=== PATIENT | female | born 1940 | race Caucasian/White ===

== ENCOUNTER 2020-06-06 05:32 | Inpatient (IN) | payer MEDICARE, BC ==
--- NOTE | 2020-06-05 07:01 | HP ---
REASON FOR H AND P: Surgery on 06/06/2020. HISTORY OF PRESENT ILLNESS: Ms. Mcdonald is an 80-year-old female with a history of ACDF when she was 63 years old, living in [place]. She states she has neck pain and only numbness radiating to her entire bilateral arms, hands, and all her fingers. She often drops objects for many years, and states that her left hand is worse than the right hand. She has been using a cane for several years now due to her unsteady gait. She denies bladder or bowel incontinence. REVIEW OF SYSTEMS: CONSTITUTIONAL: Denies fever or chills. ENT: Denies change in vision or hearing. CARDIAC: Denies chest pain, shortness of breath, diaphoresis. PULMONARY: Denies shortness of breath, cough, or hemoptysis. GI: Denies abdominal pain, nausea, vomiting, diarrhea, change in stool formation and consistency. : Denies trouble with urination, frequency of urination, bloody urine. SKIN: Denies skin rash, bruising, bleeding, skin masses. MUSCULOSKELETAL: As per history of present illness. NEUROLOGIC: As per history of present illness. PSYCHOLOGIC: Denies anxiety, depression, behavior changes. PAST MEDICAL HISTORY: Arthritis, blood clots both lungs (PEs), chronic pain, high blood pressure, kidney/bladder problems. PAST SURGICAL HISTORY: Left hand surgery, ACDF, laminectomy in 2015. FAMILY HISTORY: Father . Mother . SOCIAL HISTORY: Nonsmoker. Denies alcohol or illicit drug use. MEDICATIONS: 1. Xarelto 20 mg. 2. Furosemide 20 mg. 3. Gabapentin 300 mg. 4. Cyclobenzaprine 10 mg. 5. Acetaminophen/codeine. 6. Doxazosin 1 mg. 7. Carvedilol 12.5 mg. ALLERGIES: PENICILLIN. VITAL SIGNS: Weight 160, height 5 feet 7 inches, and BMI 25. PHYSICAL EXAMINATION: HEENT: Pupils are equal. Extraocular movements are intact. NECK: Soft, supple. No masses are noted. Range of motion is intact and painful. NEUROLOGIC: Awake, alert, and oriented x3. Memory, attention, fund of knowledge are normal. Cranial nerves grossly intact. Upper extremities, 4/5 strength in her right biceps, left biceps 5/5 in the wrist extension, 4/5 in the left finger extension and finger intrinsics. IMAGING STUDIES: C-spine MRI, T1-T2 HTD, thoracic disk, severe central narrowing T2-T3, HTD severe central narrowing T4-T5, severe left and right foraminal narrowing, T5-T6 severe left foraminal narrowing. C-spine x-ray, stable ACDF C5 through C7, C4-C5 spondylolisthesis. ASSESSMENT: Cervical spondylosis with myopathy, cervical stenosis of this cervical spine. PLAN: 1. Posterior laminectomy and fusion, C5 through T3. Preop labs; CBC, PT, PTT, INR. 2. Clearance: PCP, cardiac, anesthesia, 3. Doppler ultrasound of the bilateral lower extremities prior to surgery. Possible IVC filter if clots are detected by Doppler ultrasound. 4. Stay off Xarelto 1 week prior to surgery and 2 weeks after surgery. INFORMED CONSENT: We have discussed the indications, risks, benefits, alternatives, and expected results from surgery. The risks discussed included, but were not limited to, bleeding, infection, CSF leak, nerve damage, weakness, swallowing trouble, feeding tube placement, tracheal injury, esophageal injury, vocal cord injury, spinal cord injury, incontinence, paralysis, ventilator dependency, wheelchair dependency, stroke, loss of vision, carotid artery injury, jugular vein injury, hardware misplacement, cardiopulmonary complications of anesthesia or . Long-term complications discussed included, but were not limited to hardware failure and degradation of surrounding disk. The patient states they understand the risks and is willing to proceed. Job ID: [id number] [facility]
[2020-06-05 08:21] VITALS: BMI 25.8
[2020-06-06] MEDS ORDERED: Clindamycin/D5W 900 mg/50 ml Premix Bag ONE ×2 (06:01→17:30)
[2020-06-06] MEDS ORDERED: Levofloxacin 500 mg/D5W 100 ml Premix Bag ONE (06:01)
[2020-06-06] MEDS ORDERED: Thrombin 5000 UNITS/5 ML VIAL ONE (06:11)
[2020-06-06] MEDS ORDERED: EPINEPHrine 1 MG/ML AMP ONE (06:11)
[2020-06-06] MEDS ORDERED: Bupivacaine PF 0.5% 30 ML VIAL ONE (06:11)
[2020-06-06] MEDS ORDERED: Bacitracin Zinc Ointment 30 gm TUBE ONE (06:36)
[2020-06-06] MEDS ORDERED: Phenylephrine 10 MG/ML VIAL ONE (06:54)
[2020-06-06] MEDS ORDERED: Ketamine 50 MG/ML (10ML VIAL) ONE (06:54)
[2020-06-06] MEDS ORDERED: Fentanyl 100 MCG/2 ML VIAL ONE ×4 (06:58→18:05)
[2020-06-06 07:20] LABS: #Basophils 0.1 thou/uL (0.0-0.2); #Eosinphils 0.3 thou/uL (0.0-0.7); #Lymphocytes 2.4 thou/uL (1.20-3.40); #Monocytes 0.8 thou/uL (0.11-0.59); #Neutrophils 3.9 thou/uL (1.40-6.50); %Basophils 0.9 % (0.0-1.0); %Eosinophils 4.4 % (0.0-10.0); %Lymphocytes 32.3 % (21.0-51.0); %Monocytes 10.2 % (0.0-10.0); %Neutrophils 52.2 % (42.0-75.0); Hemoglobin 13.4 g/dL (12.0-16.0); Mean Corpuscular HGB CONC 33.4 g/dL (32.0-36.0); Mean Corpuscular Hemoglobin 31.3 pg (27.0-31.0); Mean Corpuscular Volume 93.7 fL (78.0-98.0); Mean Platelet Volume 8.2 fL (7.4-10.4); Platelet Count 188 thou/uL (130-400); Red Blood Cell (RBC) Count 4.29 mill/uL (4.20-5.40); White Blood Cell (WBC) Count 7.6 thou/uL (4.8-10.8)
[2020-06-06 07:27] LABS: INR-International Normal Ratio 0.9; PTT 29.7 sec (22.9-36.1); Prothrombin Time 12.6 sec (12.0-14.7)
[2020-06-06 07:39] LABS: Anion Gap 16 mmol/L (10-20); BUN (Urea Nitrogen) 21 mg/dL (9.8-20.1); Calc. Creatinine Clearance 41 mL/min (70-130); Calcium 9.4 mg/dL (7.8-10.44); Carbon Dioxide 22 mmol/L (23-31); Chloride 107 mmol/L (98-107); Estimated GFR-MDRD 42; Glucose 158 mg/dL (83-110); Potassium 4.6 mmol/L (3.5-5.1); Sodium 140 mmol/L (136-145)
[2020-06-06] MEDS ORDERED: Rocuronium Bromide 10 MG/ML (10ML VIAL) ONE (10:38)
[2020-06-06] MEDS ORDERED: Ondansetron PF 4 MG/2 ML Vial ONE (10:38)
[2020-06-06] MEDS ORDERED: Glycopyrrolate 0.2 MG/ML 5 ML SYRINGE ONE (10:38)
[2020-06-06] MEDS ORDERED: ePHEDrine 50 MG/ML VIAL ONE ×2 (10:38→13:51)
[2020-06-06] MEDS ORDERED: Dexamethasone 20 MG/5 ML VIAL ONE (10:38)
[2020-06-06] MEDS ORDERED: PROPOFOL 200 MG/20 ML VIAL ONE (10:38)
[2020-06-06] MEDS ORDERED: Lidocaine 1% PF 5 ML VIAL ONE (10:38)
[2020-06-06] MEDS ORDERED: Promethazine HCl 25 MG/ML VIAL SLOW IVP PRN ×2 (11:14→16:03)
[2020-06-06] MEDS ORDERED: HYDROmorphone 2 MG/ML VIAL SLOW IVP PRN ×2 (11:14→16:03)
[2020-06-06] MEDS ORDERED: Ondansetron HCl/PF 4 MG/2 ML Vial IVP PRN ×2 (11:14→16:03)
[2020-06-06] MEDS ORDERED: SUGAMMADEX SODIUM 200 MG/2 ML VIAL ONE (11:50)
[2020-06-06] MEDS ORDERED: Rocuronium Bromide 50 MG/5 ML VIAL ONE ×2 (11:50→14:24)
[2020-06-06] MEDS ORDERED: traMADol HCl 50 MG TAB PO PRN (15:47)
[2020-06-06] MEDS ORDERED: Morphine 2 MG/ML VIAL SLOW IVP PRN (15:47)
[2020-06-06] MEDS ORDERED: Promethazine HCl 25 MG/ML VIAL IM PRN ×3 (15:47→17:42)
[2020-06-06] MEDS ORDERED: tiZANidine HCl 4 MG TAB PO PRN (15:47)
[2020-06-06] MEDS ORDERED: diphenhydrAMINE 25 MG CAP PO PRN ×2 (15:47→17:42)
[2020-06-06] MEDS ORDERED: Scopolamine 1.5 mg/72 hour Patch TD PRN (15:47)
[2020-06-06] MEDS ORDERED: Mag-Al 1200 mg/1200 mg/30 ML UDCUP PO PRN (15:47)
[2020-06-06] MEDS ORDERED: Milk Of Magnesia 30 ML UDCUP PO PRN (15:47)
[2020-06-06] MEDS ORDERED: Promethazine 25 MG TAB PO PRN (15:47)
[2020-06-06] MEDS ORDERED: Acetaminophen 325 MG TAB PO PRN (15:47)
[2020-06-06] MEDS ORDERED: HYDROmorphone 0.5 MG/0.5 ML SYRINGE ONE ×4 (16:23→17:15)
[2020-06-06] MEDS: Clindamycin/D5W 900 MG in Premix Bag 1 BAG IVPB SCH (17:30)
[2020-06-06] MEDS ORDERED: Zolpidem Tartrate 5 MG TAB PO PRN (17:42)
[2020-06-06] MEDS ORDERED: Naloxone HCl 0.4 mg/ml Vial IV PRN (17:42)
[2020-06-06] MEDS ORDERED: diphenhydrAMINE 50 MG/ML VIAL IVP PRN (17:42)
[2020-06-06] MEDS ORDERED: diphenhydrAMINE 50 MG/ML VIAL IM PRN (17:42)
[2020-06-06] MEDS ORDERED: fentaNYL Citrate/PF 2,000 MCG in Sodium Chloride 0.9% 60 ML IV PRN (17:42)
[2020-06-06] MEDS ORDERED: Ondansetron PF 4 MG/2 ML Vial IVP PRN (17:42)
[2020-06-06] MEDS ORDERED: Communication Order-Pharmacy FS SCH (17:45)
--- NOTE | 2020-06-06 19:22 | OP ---
DATE OF PROCEDURE: 06/06/2020 TRUSS PULLER HELPER: David Kc PA-C. PREOPERATIVE INDICATION: Treat pain and prevent neurological deterioration. PREOPERATIVE DIAGNOSES: Cervicothoracic spinal stenosis with myelopathy, worsening; prior cervical surgery. POSTOPERATIVE DIAGNOSES: Cervicothoracic spinal stenosis with myelopathy, worsening; prior cervical surgery. PROCEDURES PERFORMED: 1. Decompressive laminectomy with medial facetectomy and foraminotomy at C5, C6, C7, and T1, T2, T3. 2. Posterior segmental instrumentation, C5 through T3. 3. Posterolateral arthrodesis, C5-C6, C6-C7, C7-T1, T1-T2, T2-T3. 4. Local morselized autograft, morselized allograft. PREOPERATIVE MEDICATIONS: 1. Levaquin 500 mg IV. 2. Clindamycin 900 mg IV. DRAIN NUMBER: 1. DRAIN TYPE: 10-Azeri Olvin. DESCRIPTION OF PROCEDURE: The patient was brought to the operating room. General endotracheal anesthesia was induced. Ring pin and headholder were attached to the patient's head, and the patient was carefully positioned prone on the operating table with her chest and hips supported by gel-filled chest rolls. The head was immobilized with Ring arreola. The patient was strapped to the bed. A lateral fluoro radiograph was used to plan our incision. The back of the neck and upper thoracic skin were sterilely prepped and draped. We opened the midline incision with a 10 blade knife and controlled bleeding with bipolar and monopolar cautery. We used monopolar cautery to dissect through subcutaneous tissues to the ligamentum nuchae. We incised this ligament in the midline and made our way to the spinous processes from C4 through T3. Self-retaining retractors were placed and a lateral fluoro radiograph confirmed the levels upon which we were operating. We then proceeded with our decompression. Using Adson rongeur, we removed the spinous processes from C5 through T2 and the superior portion of T3. Using Kerrison rongeurs, we fashioned a careful midline laminectomy and then widened our laminectomy all the way to the pedicles. We took some overgrown facet joints and made sure nerve roots were leaving the spine without impingement. With our dura well decompressed, we turned our attention to arthrodesis. Starting with the T1, T2, and T3, we chose entry points for pedicle screws. We did this by palpating the medial portion of the pedicles and using a lateral fluoro radiograph as well as bony anatomic landmarks as our guide. With our the entry points chosen, we used a bone awl to advance through the pedicles into the vertebral bodies. We tapped our trajectory with the 3.5 mm tap and placed 4 mm diameter pedicle screws from T1 through T3 bilaterally. The C7 lateral mass and the C7 pedicle would not accept the screw head that would fall into alignment with the T1 screws and therefore we skipped that level. We drilled out the regional airline pilot holes into the lateral masses at C6 and C5 bilaterally. We drilled out our trajectory by aiming superiorly and laterally with a hand drill and we placed 14 mm lateral mass screws. We irrigated with bacitracin irrigation. We then brought rods down into the field. Due to the kyphosis of the upper thoracic spine and the extreme lordosis in the cervical spine, getting a olivia to bridge the construct required multiple iterative attempts at contouring. In the end, we contoured two rods that engaged the 10 screw heads. We tightened caps over the rods and using a torque/counter-torque mechanism, ensured adequate tightness. We irrigated once again with bacitracin irrigation. We decorticated the lateral masses and the facet joints from C5 all the way down to T3. We left demineralized bone matrix and morselized autograft in the posterolateral space for posterolateral arthrodesis at C5-C6, C6-C7, C7-T1, T1-T2, and T2-T3. We tunneled the drain inferiorly through a separate stab incision. We treated the wound with vancomycin powder and closed in anatomical layers. This was a clean case, no contamination. Job ID: [id number] [facility]
[2020-06-06] MEDS ORDERED: PATIENT'S HOME MEDICATION PO SCH (21:00)
[2020-06-06] MEDS: Sodium Chloride 0.9% 1,000 ML IV SCH (21:39)
[2020-06-06] MEDS: Carvedilol 6.25 MG TAB PO SCH (21:40)
[2020-06-06] MEDS: Gabapentin 300 MG CAP PO SCH (21:42)
[2020-06-06] MEDS: Doxazosin Mesylate 1 MG TAB PO SCH (21:42)
[2020-06-06] MEDS ORDERED: Dextrose 50% Abboject 50 ML SYRINGE SLOW IVP PRN (21:44)
[2020-06-06] MEDS ORDERED: Dextrose 5% in Water 1,000 ML IV PRN (21:44)
[2020-06-07] MEDS: Clindamycin/D5W 900 MG in Premix Bag 1 BAG IVPB SCH ×3 (00:12→16:53)
[2020-06-07] MEDS: Sodium Chloride 0.9% 1,000 ML IV SCH ×2 (04:26→16:54)
[2020-06-07] MEDS: glipiZIDE 5 MG TAB PO SCH ×2 (08:36→10:38)
[2020-06-07] MEDS ORDERED: hydrOXYzine 10 MG TAB PO SCH (09:00)
[2020-06-07] MEDS ORDERED: Furosemide 20 MG TAB PO SCH (09:00)
[2020-06-07] MEDS ORDERED: HumaLOG 300 UNITS/3 ML VIAL SC PRN (10:04)
[2020-06-07] MEDS: Gabapentin 300 MG CAP PO SCH (10:38)
--- NOTE | 2020-06-07 10:44 | PDOC.HHP ---
Hospitalist HPI - History of Present Illness Chronic neck and back pain History of Present Illness: PCP: out of town The patient is a 8-year-old female with a past medical history significant for chronic neck and back pain, hypertension, DM 2, tachycardia, obstructive sleep apnea (on CPAP at home), insomnia and anxiety that presents to the hospital for a scheduled posterior laminectomy and fusion of C5-T3 with Dr. Lepe. The patient has had chronic pain for some time in her neck and back, making it hard for her to perform her activities of daily living. For those reasons she is scheduled a surgery to have her spine repaired. We have been consulted for medical management. At the time of assessment, the patient denies any chest pain, heart palpitations, lightheadedness or swelling to lower extremities. She denies any shortness of breath, wheeze or cough. She denies abdominal pain, nausea, vomiting, diarrhea. She denies any urinary symptoms. She denies any fever or chills. ED Course: Direct admit. Hospitalist ROS - Review of Systems All other systems reviewed; all pertinent +/- noted in HPI/Subj - Medication Medications: Active Medications Generic Name Dose Route Start Last Admin Trade Name Freq PRN Reason Stop Dose Admin Carvedilol 12.5 mg 06/06/20 21:00 06/06/20 21:40 Carvedilol 6.25 Mg Tab PO 12.5 mg BID [place] Administration Doxazosin Mesylate 1 mg 06/06/20 21:00 06/06/20 21:42 Doxazosin Mesylate 1 Mg Tab PO 1 mg HS [place] Administration Sodium Chloride 1,000 mls @ 75 mls/hr 06/06/20 16:00 06/07/20 04:26 Normal Saline 0.9% IV Not Given .[id number] [place] Clindamycin Phosphate/Dextrose 50 mls @ 100 mls/hr 06/06/20 17:00 06/07/20 00:12 900 mg/ Device IVPB 50 mls 0100,0900,1700 [place] Administration Levofloxacin 500 mg/ Device 100 mls @ 100 mls/hr 06/07/20 06:00 06/07/20 06:30 IVPB 100 mls Q24HR [place] Administration Hospitalist History - Past Medical History Cardiac: reports: HTN, Other (Tachycardia) Pulmonary: reports: Other ( obstructive sleep apnea on CPAP at home) Psych: reports: Anxiety, Other (Insomnia) Endocrine: reports: Diabetes (Type II) - Past Surgical History Past Surgical History: reports: Cataract Removal, Hysterectomy, Other (Neck surgery x2, back surgery x2, hand surgery) - Family History Other Family History: Noncontributory to this case - Social History Smoking Status: Never smoker Alcohol: reports: None Living Situation: With Family Occupation: Does not work Activity level: uses cane/walker - Exam General Appearance: NAD. negative: ill appearing General - other findings: Somnolent with fentanyl STRATEGIC INSIGHTS LEAD infusing Eye: PERRL, anicteric sclera ENT: normocephalic atraumatic Neck: supple, symmetric, no JVD Heart: no murmur, no gallops, no rubs, normal peripheral pulses Heart - other findings: Tachycardia Respiratory: CTAB, no wheezes, no rales, no ronchi, normal chest expansion, no tachypnea Gastrointestinal: soft, non-tender, non-distended, normal bowel sounds, no guarding, no rigidity Extremities: no cyanosis, no edema Skin: no rashes Neurological - other findings: GCS 14: E 3, V5, M6 Psychiatric: normal affect, oriented to person, oriented to place, oriented to time, somnolent Hospitalist Results - Labs Result Diagrams: 06/06/20 06:46 06/06/20 06:46 Lab results: WBC 7.6 thou/uL (4.8-10.8) 06/06/20 06:46 Hgb 13.4 g/dL (12.0-16.0) 06/06/20 06:46 Hct 40.2 % (36.0-47.0) 06/06/20 06:46 MCV 93.7 fL (78.0-98.0) 06/06/20 06:46 Plt Count 188 thou/uL (130-400) 06/06/20 06:46 Neutrophils % 52.2 % (42.0-75.0) 06/06/20 06:46 Sodium 140 mmol/L (136-145) 06/06/20 06:46 Potassium 4.6 mmol/L (3.5-5.1) 06/06/20 06:46 Chloride 107 mmol/L (98-107) 06/06/20 06:46 Carbon Dioxide 22 mmol/L (23-31) L 06/06/20 06:46 BUN 21 mg/dL (9.8-20.1) H 06/06/20 06:46 Creatinine 1.24 mg/dL (0.6-1.1) H 06/06/20 06:46 Glucose 158 mg/dL (83-110) H 06/06/20 06:46 Calcium 9.4 mg/dL (7.8-10.44) 06/06/20 06:46 Hospitalist H&P A/P - Problem (1) Hypertension Code(s): I10 - ESSENTIAL (PRIMARY) HYPERTENSION Status: Acute (2) Tachycardia Code(s): R00.0 - TACHYCARDIA, UNSPECIFIED Status: Acute (3) DM2 (diabetes mellitus, type 2) Status: Acute (4) DELORES (obstructive sleep apnea) Code(s): G47.33 - OBSTRUCTIVE SLEEP APNEA (ADULT) (PEDIATRIC) Status: Acute (5) Status post laminectomy with spinal fusion Code(s): Z98.1 - ARTHRODESIS STATUS Status: Acute - Plan Plan: 80/F with PMH HTN, tachycardia, DM 2, DELORES consulted for medical management. The patient has been admitted to the surgical floor, inpatient status. Expected length of stay greater than 2 midnights. Patient was somnolent upon assessment, nursing had stopped her fentanyl STRATEGIC INSIGHTS LEAD pump. We will hold home dose of gabapentin and Atarax. #Hypertension Chronic, appears stable. Restart home dose of Coreg and doxazosin. Hold home dose of Lasix at this time. #Tachycardia Chronic, stable. Upon assessment, HR 103. Patient asymptomatic. Nursing to give home scheduled BB now. #DM2 Hold home dose of glipizide. Start moderate ISS. AC/at bedtime checks. #DELORES Chronic, stable. Says compliant at home with CPAP. Consult RT for CPAP at night. #Status post laminectomy with spinal fusion POD #1 C5-T3 christiano with fusion Clinical course per neurosurgery PT/OT STRATEGIC INSIGHTS LEAD pump and nerve block per anesthesia Discussed case with Dr. Ramirez.
[2020-06-07] MEDS: Carvedilol 6.25 MG TAB PO SCH ×2 (11:03→21:56)
[2020-06-07] MEDS: Bisacodyl 5 MG TAB PO SCH (11:03)
[2020-06-07 13:14] LABS: Bacteria/HPF None Seen HPF (None Seen); Bilirubin Negative (Negative); Blood, Urine 1+ (Negative); Clarity Clear (Clear); Glucose, Urine (Dipstick) 50 mg/dL (Negative); Ketone, Urine Negative (Negative); Leukocyte Negative Leu/uL (Negative); Nitrite Negative (Negative); Protein, Urine (Dipstick) Negative (Neg-Trace); Specific Gravity, Urine 1.014 (1.002-1.036); Squamous Epithelial None Seen HPF (0-3); Urobilinogen Normal mg/dL (Less than 2); WBC/HPF 0-3 HPF (0-3); pH, Urine 5.5 (5.0-9.0)
[2020-06-07 13:19] LABS: Urine Culture Reflex No No
--- NOTE | 2020-06-07 15:26 | PRG ---
DATE OF SERVICE: 06/07/2020 Ms. Mcdonald is postoperative day #1 after undergoing C5-T1 posterior decompression and fusion. Daughter and nurse were at bedside and state the patient is more confused today compared to her baseline. Daughter also notes increased weakness in the right leg and foot that was not present prior to her operation. Patient is on a fentanyl SYSTEM INTEGRATION ENGINEER, but nurse notes that she is having difficulty with pressing the button on her own. Patient has stood but not yet ambulated. A bladder scan was done that showed 750 mL postvoid residual, and an indwelling Brice catheter was placed. Posterior cervical HARRIET drain output of 80 mL overnight. This morning patient is noted to have a low grade fever of 100.5 and mild tachycardia. Her systolic blood pressure has climbed to the 150s. She had one instance of O2 SAT of 92% on room air, but otherwise this has been up to 99% on room air. The patient is awake and intermittently responds to questions appropriately. She is only oriented to self. She was able to correctly identify a pen and state its use. Cranial nerves 2-12 are grossly intact. She has mild weakness in the bilateral triceps Otherwise she demonstrates good movement and strength throughout the upper extremity myotomes. She has 3/5 strength in the right iliopsoas, and she is unable to dorsiflex or plantar flex the right foot. She has mild weakness throughout the left lower extremity myotomes, but overall has good movement of the left leg and foot. There is no erythema, swelling, or warmth noted in the bilateral lower extremities. Sensation to light touch is intact. Case was discussed and prior imaging studies were reviewed with Dr. Epstein. Our team reviewed her preoperative MRIs. MRI of the lumbar spine demonstrates severe stenosis bilaterally. Perhaps prolonged prone positioning during surgery in setting of existing stenosis has resulted in her increased right lower extremity weakness. We will obtain a noncontrast CT of the brain to rule out intracranial abnormalities given the patient's increased confusion and right lower extremity weakness. A Doppler ultrasound of the bilateral lower extremities has been ordered to rule out DVT, given the patient's prior history of bilateral pulmonary emboli. SYSTEM INTEGRATION ENGINEER will be stopped given patient unable to push button, and medications have been ordered for nursing staff to administer. Our team will reassess patient tomorrow. Please call for any neurologic changes or other concerns. Job ID: [id number] [facility]
--- NOTE | 2020-06-07 15:39 | ULT ---
EXAM: Bilateral lower extremity venous ultrasound HISTORY: Swelling and pain. COMPARISON: None TECHNIQUE: Multiplanar grayscale and color Doppler images were obtained in a bilateral lower extremit y venous ultrasound. Spectral analysis of the Doppler waveforms were performed. FINDINGS: The bilateral common femoral vein, profunda femoral veins, superficial femoral veins, and p opliteal veins are normal in appearance without visible thrombus. These vessels demonstrate normal compression, flow, and augmentation. The bilateral posterior tibial veins, profunda femoral veins and greater saphenous veins are patent w ithout evidence of DVT. IMPRESSION: No evidence of DVT in the left or right lower extremity.
[2020-06-07] MEDS ORDERED: traMADol HCl 50 MG TAB PO PRN (15:54)
--- NOTE | 2020-06-07 15:55 | CT ---
Exam: Head CT without contrast HISTORY: Confusion. Acute right lower extremity weakness. COMPARISON: none FINDINGS: Hemorrhage: No intraparenchymal hemorrhage or extra-axial hematoma. Brain parenchyma: Cortical stanford-white matter differentiation is preserved. No mass effect or midline shift. 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 There are chronic small vessel ischemic changes of the white matter. Ventricular system: Ventricles and sulci are patent and symmetric. Calvarium: Intact. Sinuses and mastoid air cells: Adequate aeration. IMPRESSION: No acute intracranial process.
[2020-06-07] MEDS: Fentanyl 100 MCG/2 ML VIAL SLOW IVP PRN ×2 (16:48→22:01)
[2020-06-07] MEDS ORDERED: hydrALAZINE 20 MG/ML VIAL SLOW IVP PRN (20:11)
[2020-06-07] MEDS: Doxazosin Mesylate 1 MG TAB PO SCH (21:56)
[2020-06-08] MEDS: Clindamycin/D5W 900 MG in Premix Bag 1 BAG IVPB SCH ×3 (01:50→17:13)
[2020-06-08] MEDS: Fentanyl 100 MCG/2 ML VIAL SLOW IVP PRN ×4 (03:01→21:55)
[2020-06-08] MEDS: Sodium Chloride 0.9% 1,000 ML IV SCH ×2 (05:27→21:50)
[2020-06-08 05:50] LABS: #Lymphocytes 2.1 thou/uL (1.20-3.40); #Monocytes 1.6 thou/uL (0.11-0.59); #Neutrophils 9.2 thou/uL (1.40-6.50); %Basophils 0.1 % (0.0-1.0); %Eosinophils 0.1 % (0.0-10.0); %Monocytes 12.6 % (0.0-10.0); %Neutrophils 71.1 % (42.0-75.0); Hemoglobin 10.1 g/dL (12.0-16.0); Mean Corpuscular Hemoglobin 30.6 pg (27.0-31.0); Mean Corpuscular Volume 92.8 fL (78.0-98.0); Mean Platelet Volume 8.2 fL (7.4-10.4); Platelet Count 130 thou/uL (130-400); RBC Distribution Width 12.6 % (11.5-14.5); White Blood Cell (WBC) Count 12.9 thou/uL (4.8-10.8)
[2020-06-08 06:19] LABS: Anion Gap 15 mmol/L (10-20); BUN (Urea Nitrogen) 14 mg/dL (9.8-20.1); Calc. Creatinine Clearance 51 mL/min (70-130); Calcium 8.2 mg/dL (7.8-10.44); Carbon Dioxide 20 mmol/L (23-31); Chloride 100 mmol/L (98-107); Estimated GFR-MDRD 53; Glucose 165 mg/dL (83-110); Potassium 3.8 mmol/L (3.5-5.1); Sodium 131 mmol/L (136-145)
[2020-06-08] MEDS: Carvedilol 6.25 MG TAB PO SCH ×2 (08:59→20:56)
[2020-06-08] MEDS: Bisacodyl 5 MG TAB PO SCH (09:02)
[2020-06-08] MEDS: HumaLOG 300 UNITS/3 ML VIAL SC PRN ×2 (13:28→17:13)
[2020-06-08] MEDS ORDERED: Dexamethasone 4 MG TAB PO SCH (13:45)
--- NOTE | 2020-06-08 14:15 | PRG ---
DATE OF SERVICE: 06/08/2020 Ms. Mcdonald is postoperative day #2 from C5-T3 laminectomy and fusion. This morning, she is slightly better than she was yesterday and that she quite lucid and answers questions appropriately and periods where she simply mumbles. Head CT yesterday was negative for acute pathology and ultrasound of the lower extremities was negative for DVT. She has an extensive DVT, PE history. Currently, her hemodynamics are stable. She is on 2 L nasal cannula oxygen with low to mid 90% saturation. I suspect this is related to atelectasis as it pertains to the very low-grade fever she had yesterday, but also to essentially pain control issues given this type of surgery. Neurologically, again she follows commands. She is able to lift her left upper and left lower extremity up off the bed. Her right upper extremity, she is able to lift and maintain it up. She has moderate hand intrinsic weakness in the right side; however, overall I would say her rn procedures strength is satisfactory considering a multilevel cord compression. She has excellent biceps strength as well. In her right lower extremity, in all myotomes. She has known multilevel L2-S1 stenosis in particular on the right side and this may be simply related to her cervical thoracic myelopathy that has been longstanding and has now been decompressed coupled with an extended spinal position with lumbar stenosis. She has known lumbar stenosis and this will be addressed by Dr. Lepe in the future. I extensively discussed with her daughter that I think it is going to take time to clear her encephalopathy, but also improve in regard to her myelopathy and radiculopathy. We will touch her with just a small dose of steroids today to see if this will help with her myeloradicular symptoms. We will watch closely for agitation. She will need inpatient rehab. We will leave her posterior cervical thoracic drain in place as the output was 40 mL yesterday. Job ID: [id number]
--- NOTE | 2020-06-08 17:59 | PDOC.HOSPP ---
- Subjective Encounter Date: 06/08/20 Encounter Time: 17:45 Subjective: f/u for HTN/DM and s/p C5-T3 spinal fusion POD #2. Some somnolence and confusion. Receiving Levaquin/Clindamycin and single dose of Decadron. - Objective Vital Signs & Weight: Vital Signs (12 hours) Temp Pulse Resp BP Pulse Ox 06/08/20 15:51 99.9 F H 89 18 124/72 95 06/08/20 11:58 97.5 F L 83 18 109/69 93 L 06/08/20 07:33 97.6 F 100 18 147/67 H 92 L Weight Weight 160 lb I&O: 06/07/20 06/08/20 06/09/20 06:59 06:59 06:59 Intake Total 1470 1555 Output Total 480 2755 Balance 990 -1200 Result Diagrams: 06/08/20 05:25 06/08/20 05:25 Additional Labs: Accuchecks 06/08/20 06/08/20 06/08/20 15:49 11:55 05:54 POC Glucose 161 H 179 H 164 H 06/07/20 06/07/20 20:24 18:26 POC Glucose 153 H 154 H Laboratory Tests 06/06/20 06/06/20 06:46 06:46 WBC 7.6 Sodium 140 Radiology Reviewed by me: Yes (CT brain - no acute process) Hospitalist ROS - Medication Medications: Active Medications Generic Name Dose Route Start Last Admin Trade Name Freq PRN Reason Stop Dose Admin Acetaminophen 650 mg 06/06/20 15:47 06/08/20 08:59 Acetaminophen 325 Mg Tab PO 650 mg Q4H PRN Administration BRANNON/Fever Or Mild Pain (1-3) Bisacodyl 5 mg 06/07/20 09:00 06/08/20 09:02 Bisacodyl 5 Mg Tab PO Not Given QAM [place] Carvedilol 12.5 mg 06/06/20 21:00 06/08/20 08:59 Carvedilol 6.25 Mg Tab PO 12.5 mg BID [place] Administration Doxazosin Mesylate 1 mg 06/06/20 21:00 06/07/20 21:56 Doxazosin Mesylate 1 Mg Tab PO 1 mg HS [place] Administration Fentanyl 25 mcg 06/07/20 15:54 06/08/20 09:00 Fentanyl 100 Mcg/2 Ml Vial SLOW IVP 25 mcg Q2H PRN Administration Severe Pain (7-10) Sodium Chloride 1,000 mls @ 75 mls/hr 06/06/20 16:00 06/08/20 05:27 Normal Saline 0.9% IV 1,000 mls .[id number] [place] Administration Clindamycin Phosphate/Dextrose 50 mls @ 100 mls/hr 06/06/20 17:00 06/08/20 17:13 900 mg/ Device IVPB 50 mls 0100,0900,1700 [place] Administration Levofloxacin 500 mg/ Device 100 mls @ 100 mls/hr 06/07/20 06:00 06/08/20 05:27 IVPB 100 mls Q24HR [place] Administration Insulin Human Lispro 0 units 06/07/20 10:04 06/08/20 17:13 Humalog 300 Units/3 Ml Vial SC 2 unit .MODERATE SLIDING SC PRN Administration Moderate Correctional Scale - Exam General - other findings: somnolent Eye: PERRL, anicteric sclera ENT: normocephalic atraumatic, no oropharyngeal lesions Neck: supple, symmetric, no JVD, no thyromegaly Heart: RRR, no murmur, no gallops, no rubs, normal peripheral pulses Heart - other findings: S1, S2 Respiratory: CTAB, no wheezes, no rales, no ronchi, normal chest expansion Gastrointestinal: soft, non-tender, non-distended, normal bowel sounds, no palpable masses Extremities: no cyanosis, no clubbing, no edema Skin: normal turgor Neurological: cranial nerve grossly intact, no new deficit Musculoskeletal: normal tone, generalized weakness Psychiatric: A&O x 3, flat affect, somnolent Hosp A/P (1) DM2 (diabetes mellitus, type 2) Status: Chronic Plan: ISS, Glipizide, serial accuchecks, ADA (2) Hypertension Code(s): I10 - ESSENTIAL (PRIMARY) HYPERTENSION Status: Chronic Qualifiers: Hypertension type: essential hypertension Qualified Code(s): I10 - Essential (primary) hypertension Plan: Resume home BP regimen, serial BP monitoring (3) DELORES (obstructive sleep apnea) Code(s): G47.33 - OBSTRUCTIVE SLEEP APNEA (ADULT) (PEDIATRIC) Status: Chronic Plan: nocturnal CPAP (4) Status post laminectomy with spinal fusion Code(s): Z98.1 - ARTHRODESIS STATUS Status: Acute Plan: POD #2, pain control, PT/OT for mobilization, inpt rehab pending - Plan continue antibiotics, PT/OT, renal social worker, incentive spirometry, DVT proph w/SCDs Stable currently Pain control per primary service Continue ISS/Glipizide CM for inpt rehab options AM lab: BMP
[2020-06-08] MEDS: Doxazosin Mesylate 1 MG TAB PO SCH (20:58)
[2020-06-09] MEDS: Clindamycin/D5W 900 MG in Premix Bag 1 BAG IVPB SCH ×3 (01:15→16:41)
[2020-06-09] MEDS: Fentanyl 100 MCG/2 ML VIAL SLOW IVP PRN ×3 (01:15→07:17)
[2020-06-09] MEDS: Sodium Chloride 0.9% 1,000 ML IV SCH (02:18)
[2020-06-09 02:44] LABS: #Lymphocytes 1.1 thou/uL (1.20-3.40); #Monocytes 0.8 thou/uL (0.11-0.59); #Neutrophils 11.2 thou/uL (1.40-6.50); %Basophils 0.1 % (0.0-1.0); %Lymphocytes 8.1 % (21.0-51.0); %Monocytes 5.8 % (0.0-10.0); Hemoglobin 9.8 g/dL (12.0-16.0); Mean Corpuscular Hemoglobin 31.5 pg (27.0-31.0); Mean Corpuscular Volume 92.8 fL (78.0-98.0); Mean Platelet Volume 8.4 fL (7.4-10.4); Platelet Count 122 thou/uL (130-400); RBC Distribution Width 12.5 % (11.5-14.5)
[2020-06-09 03:04] LABS: Anion Gap 14 mmol/L (10-20); BUN (Urea Nitrogen) 17 mg/dL (9.8-20.1); Calc. Creatinine Clearance 49 mL/min (70-130); Carbon Dioxide 21 mmol/L (23-31); Chloride 98 mmol/L (98-107); Estimated GFR-MDRD 51; Glucose 197 mg/dL (83-110); Potassium 3.9 mmol/L (3.5-5.1); Sodium 129 mmol/L (136-145)
[2020-06-09 03:26] LABS: Actual Bicarbonate (HCO3a) 22.5 mEq/L (22-28); Base Excess (BEa) -0.1 mEq/L (-2.0 to +3.0); CO2 Tension 31.1 mmHg (35.0-45.0); Calcium, Ionized (arterial) 1.04 mmol/L (1.12-1.30); O2 Tension (PaO2), arterial 64.8 mmHg (> 60.0); Potassium - ABG Lab 3.73 mmol/L (3.70-5.30); pH, Arterial 7.48 (7.35-7.45)
[2020-06-09 03:28] LABS: ALV-art Gradient 124.485 mmHg (0-20); Puncture Site LRA
[2020-06-09] MEDS: HumaLOG 300 UNITS/3 ML VIAL SC PRN ×2 (06:16→17:59)
--- NOTE | 2020-06-09 06:57 | PRG ---
DATE OF SERVICE: 06/09/2020 SUBJECTIVE: I saw Mary Mcdonald this morning. She is 3 days out from cervicothoracic decompression and fusion. Her recovery over the past weekend was complicated by some confusion and right hemiparesis. The medical team has been following, and we are appreciative of that. This morning, the patient complains of some pain and is trying to get herself out of bed. I reoriented her. Among the electronically recorded vital signs, the highest temperature I see is 99.9 degrees Fahrenheit, which was at 3 p.m. yesterday afternoon. Blood pressures have been in the 100s to 150s. On examination, Ms. Mcdonald is grabbing the bed rail with the right hand and pulling herself up. This is much better strength than was present in her right hand on Tuesday and right arm. When I brushed the bottom of her right foot, she withdraws her knee quite briskly. She lifts the entire leg off the bed. The strength is better than it was Tuesday as well. She is at least 4- strength in the right lower extremity. She has sensation on both lower extremities. There is a mild leukocytosis, likely from steroid administration. The sodium is trending downward, which can add to her confusion. I do not see a urinalysis or urine culture. We will make a few changes on Ms. Mcdonald today. Let us limit her fluid intake. We will Hep-Lock the IV right now. If the sodium continues to trend down, we will start fluid restricting her. We will check a UA and a urine culture and see if a UTI is causing some confusion. She sounds as though she has some labored breathing, but she looks quite comfortable with it. I will defer to the medical team about managing her pulmonary status. I am thankful for the improvement in neurological function. Job ID: [id number]
--- NOTE | 2020-06-09 07:40 | RAD ---
Portable frontal chest radiograph: 06/09/2020 COMPARISON: None HISTORY: Shortness of breath FINDINGS: Incompletely evaluated cervical spine postoperative hardware present. Shallow inspiration l imits detailed assessment of the lung bases and perihilar regions. No pneumothorax, lobar consolidation, or alveolar edema. IMPRESSION: Shallow inspiration with no focal consolidation or alveolar edema.
[2020-06-09] MEDS: Carvedilol 6.25 MG TAB PO SCH ×2 (08:15→20:00)
[2020-06-09] MEDS: Bisacodyl 5 MG TAB PO SCH (08:17)
[2020-06-09 11:16] LABS: Bilirubin Negative (Negative); Blood, Urine 2+ (Negative); Clarity Clear (Clear); Glucose, Urine (Dipstick) 150 mg/dL (Negative); Ketone, Urine Negative (Negative); Leukocyte Negative Leu/uL (Negative); Nitrite Negative (Negative); Protein, Urine (Dipstick) 70 mg/dL (Neg-Trace); RBC/HPF None Seen HPF (0-3); Specific Gravity, Urine 1.018 (1.002-1.036); Squamous Epithelial None Seen HPF (0-3); Urobilinogen Normal mg/dL (Less than 2); WBC/HPF 0-3 HPF (0-3); pH, Urine 6.5 (5.0-9.0)
[2020-06-09 11:27] LABS: Bacteria/HPF 1+ HPF (None Seen)
[2020-06-09 11:28] LABS: Urine Culture Reflex Yes Yes
[2020-06-09] MEDS: HYDROcodone/Acetaminophen 5/325 mg Tablet PO PRN ×2 (15:52→19:59)
--- NOTE | 2020-06-09 16:03 | PQF ---
CLINICAL DOCUMENTATION CLARIFICATION FORM: Dear DR. Mell Torrez Date / Time: 06/09/2020 7707 Please exercise your independent, professional judgment in responding to the clarification form. Clinical indicators are provided on the bottom of this form for your review. Please check appropriate box(es): [ x ] Hyponatremia please specify etiology, if known __hyperglycemia and pseudohyponatremia [ ] Hyponatremia due to SIADH (Syndrome of Inappropriate Secretion of Antidiuretic Hormone) [ ] Other diagnosis [ ] Unable to determine In addition, please specify: Present on Admission (POA): [ ] Yes [ x ] No [ ] Unable to determine For continuity of documentation, please document condition throughout progress notes and discharge summary. Thank You. To be completed by CDI/Coding staff for physician review: CLINICAL INDICATORS - SIGNS / SYMPTOMS / LABS / RESULTS AND LOCATION IN EMR Sodium 06/08 131 Sodium 06/09 129 Postop day# 1 pt is more confused today compared to her baseline ( Marc/ PN) 06/07 Her recovery over the past weekend was complicated by some confusion and right hemiparesis, The sodium is trending downward, which can add to her confusion. ( PN/ Roberth) 06/09 RISK FACTORS / RESULTS AND LOCATION IN EMR Recent surgery decompressive laminectomy, Encephalopathy( 06/09/ Roberth) TREATMENTS / RESULTS AND LOCATION IN EMR * Serial labs ( 06/08 06/09) * IV Fluids (06/06 present) Thank you! CDS Signature: Yana Sanchez RN Phone #: [phone] Date: 06/09/20 1600 This is a permanent part of the Medical Record [facility]
--- NOTE | 2020-06-09 17:24 | PDOC.HOSPP ---
- Subjective Encounter Date: 06/09/20 Encounter Time: 17:20 Subjective: f/u for cervico-thoracic laminectomy/fusion POD #3. Some confusion but overall moving extremities better. Receiving IVF NS/Fentanyl/Zanaflex/[place]. Less confused per daughter. - Objective Vital Signs & Weight: Vital Signs (12 hours) Temp Pulse Resp BP BP Pulse Ox 06/09/20 15:08 98.3 F 82 18 138/69 95 06/09/20 14:26 63 16 93 L 06/09/20 11:42 84 18 87 L 06/09/20 10:46 97.7 F 91 18 112/67 92 L 06/09/20 08:40 92 L 06/09/20 08:15 139/78 06/09/20 07:09 97.5 F L 94 18 159/82 H 92 L Weight Weight 160 lb I&O: 06/08/20 06/09/20 06/10/20 06:59 06:59 06:59 Intake Total 1555 2595 Output Total 2755 2310 Balance -1200 285 Result Diagrams: 06/09/20 02:33 06/09/20 02:33 Additional Labs: Accuchecks 06/09/20 06/09/20 06/09/20 16:04 10:22 05:34 POC Glucose 189 H 142 H 168 H 06/08/20 06/06/20 20:58 16:30 POC Glucose 189 H 198 H Laboratory Tests 06/06/20 06/06/20 06/08/20 06:46 06:46 05:25 WBC 7.6 Sodium 140 131 L Radiology Reviewed by me: Yes (PCXR - no acute process) Hospitalist ROS - Medication Medications: Active Medications Generic Name Dose Route Start Last Admin Trade Name Freq PRN Reason Stop Dose Admin Acetaminophen 650 mg 06/06/20 15:47 06/08/20 08:59 Acetaminophen 325 Mg Tab PO 650 mg Q4H PRN Administration BRANNON/Fever Or Mild Pain (1-3) Hydrocodone Bitart/Acetaminophen 1 tab 06/07/20 15:54 06/09/20 15:52 Hydrocodone/Acetaminophen 5/325 Mg Tablet PO 1 tab Q4H PRN Administration Moderate Pain (4-6) Albuterol/Ipratropium 3 ml 06/09/20 02:30 11/16/20 14:26 Ipratropium/Albuterol Sulfate 3 Ml Neb NEB 3 ml [id number] [place] Administration Bisacodyl 5 mg 06/07/20 09:00 06/09/20 08:17 Bisacodyl 5 Mg Tab PO 5 mg QAM [place] Administration Carvedilol 12.5 mg 06/06/20 21:00 06/09/20 08:15 Carvedilol 6.25 Mg Tab PO 12.5 mg BID [place] Administration Doxazosin Mesylate 1 mg 06/06/20 21:00 06/08/20 20:58 Doxazosin Mesylate 1 Mg Tab PO 1 mg HS [place] Administration Fentanyl 25 mcg 06/07/20 15:54 06/09/20 07:17 Fentanyl 100 Mcg/2 Ml Vial SLOW IVP 25 mcg Q2H PRN Administration Severe Pain (7-10) Sodium Chloride 1,000 mls @ 75 mls/hr 06/06/20 16:00 06/09/20 02:18 Normal Saline 0.9% IV 1,000 mls .[id number] [place] Administration Clindamycin Phosphate/Dextrose 50 mls @ 100 mls/hr 06/06/20 17:00 06/09/20 16:41 900 mg/ Device IVPB 50 mls 0100,0900,1700 [place] Administration Levofloxacin 500 mg/ Device 100 mls @ 100 mls/hr 06/07/20 06:00 06/09/20 05:06 IVPB 100 mls Q24HR [place] Administration Insulin Human Lispro 0 units 06/07/20 10:04 06/09/20 06:16 Humalog 300 Units/3 Ml Vial SC 2 unit .MODERATE SLIDING SC PRN Administration Moderate Correctional Scale - Exam General Appearance: awake alert General - other findings: smiling, responsive Eye: PERRL, anicteric sclera ENT: normocephalic atraumatic, no oropharyngeal lesions, moist mucosa Neck: supple, symmetric, no JVD, no thyromegaly, no lymphadenopathy Heart: RRR, no gallops, no rubs, normal peripheral pulses Heart - other findings: S1, S2 Respiratory: CTAB, no wheezes, no rales, no ronchi, normal chest expansion, tachypneic Gastrointestinal: soft, non-tender, non-distended, normal bowel sounds, no palpable masses, no hepatomegaly Extremities: no cyanosis, no clubbing, no edema Skin: normal turgor Neurological: cranial nerve grossly intact, no new deficit Musculoskeletal: normal tone, generalized weakness Psychiatric: normal affect, A&O x 3 Hosp A/P (1) Hyponatremia Code(s): E87.1 - HYPO-OSMOLALITY AND HYPONATREMIA Status: Acute Plan: Likely pseudohyponatremia in context of hyperglycemia, saline lock IVF's, serial monitoring, ISS for hyperglycemia (2) DM2 (diabetes mellitus, type 2) Status: Chronic Plan: ISS, serial accuchecks, ADA (3) Hypertension Code(s): I10 - ESSENTIAL (PRIMARY) HYPERTENSION Status: Chronic Qualifiers: Hypertension type: essential hypertension Qualified Code(s): I10 - Essential (primary) hypertension (4) DELORES (obstructive sleep apnea) Code(s): G47.33 - OBSTRUCTIVE SLEEP APNEA (ADULT) (PEDIATRIC) Status: Chronic (5) Status post laminectomy with spinal fusion Code(s): Z98.1 - ARTHRODESIS STATUS Status: Acute Plan: POD #3, pain control, limit polypharmacy due to potential delirium - Plan plan discussed w/ family, continue antibiotics, PT/OT, aids social worker, incentive spirometry, out of bed/ambulate, DVT proph w/SCDs Stable currently Pain control per primary service, limit polypharmacy Saline lock IVF's Continue ISS/Glipizide CM for inpt rehab options AM lab: BMP
[2020-06-09] MEDS: Doxazosin Mesylate 1 MG TAB PO SCH (20:00)
[2020-06-10] MEDS: Clindamycin/D5W 900 MG in Premix Bag 1 BAG IVPB SCH ×2 (00:01→08:07)
[2020-06-10] MEDS: Sodium Chloride 0.9% 1,000 ML IV SCH ×2 (00:39→13:51)
[2020-06-10 05:59] LABS: Anion Gap 14 mmol/L (10-20); BUN (Urea Nitrogen) 23 mg/dL (9.8-20.1); Calc. Creatinine Clearance 52 mL/min (70-130); Calcium 8.4 mg/dL (7.8-10.44); Carbon Dioxide 23 mmol/L (23-31); Chloride 101 mmol/L (98-107); Estimated GFR-MDRD 54; Glucose 117 mg/dL (83-110); Potassium 3.5 mmol/L (3.5-5.1); Sodium 134 mmol/L (136-145)
--- NOTE | 2020-06-10 06:56 | EKG ---
Test Reason : PREOP Blood Pressure : / mmHG Vent. Rate : 064 BPM Atrial Rate : 064 BPM P-R Int : 196 ms QRS Dur : 078 ms QT Int : 444 ms P-R-T Axes : 058 -02 030 degrees QTc Int : 458 ms Normal sinus rhythm Normal ECG No previous ECGs available Confirmed by AMAN LEWIS MD ([id number]) on 06/10/2020 6:55:59 AM Referred By: JIM Confirmed By:AMAN LEWIS MD
--- NOTE | 2020-06-10 07:36 | PRG ---
DATE OF SERVICE: 06/10/2020 I saw Mary Mcdonald in our hospital room this morning. She is more lucid than she was yesterday. She does feel the right leg is a little weak, but improving. Overnight, I do not see any fevers recorded. Right arm has normal neurological function. In the right lower extremity, there is good sensation. There is at least 4-/5 strength in all muscle groups. Ms. Mcdonald has been accepted to inpatient rehabilitation. Her sodium is trending back up, which is helpful. She is finishing her last dose of antibiotics. I think now is a reasonable time to consider transition to post acute care and inpatient rehabilitation would be quite beneficial for her. Arrangements could be made for that to happen today. Job ID: [id number] MTDD
[2020-06-10] MEDS: HYDROcodone/Acetaminophen 5/325 mg Tablet PO PRN ×3 (08:05→13:53)
[2020-06-10] MEDS: Bisacodyl 5 MG TAB PO SCH (08:07)
[2020-06-10] MEDS: Carvedilol 6.25 MG TAB PO SCH (08:07)
[2020-06-10 10:39] VITALS: TEMP 97.4
[2020-06-10 12:48] VITALS: BP 120/63
--- NOTE | 2020-06-11 02:04 | DIS ---
DATE OF ADMISSION: 06/06/2020 DATE OF DISCHARGE: 06/10/2020 This is a transfer care note. DISCHARGE DIAGNOSES: 1. Hyponatremia secondary to pseudohyponatremia/hyperglycemia, improved. 2. Diabetes mellitus type 2. 3. Hypertension, stable. 4. Status post laminectomy with spinal fusion in the cervicothoracic distribution. Primary service attending, Dr. Lepe with Neurosurgical Service. Hospitalist service for general medical management. PERTINENT LABORATORY AND X-RAY FINDINGS: Sodium ranged between 129 to 140, creatinine ranged between 0.99 to 1.24. CBC showed a white blood cell count ranged between 7.6 to 13.0, hemoglobin ranged between 9.8 to 13.4. Urine culture dated 06/09/2020, showed no growth at [address] of the brain without contrast dated 06/07/2020, showed no acute intracranial process. Bilateral lower extremity venous Doppler study dated 06/07/2020, showed no evidence for DVT. Portable chest x-ray dated 06/09/2020, showed no acute infiltrate. HOSPITAL COURSE: The patient was initially admitted under the Neurosurgical team due to spinal stenosis with myelopathy, undergoing a C5 through T3 decompressive laminectomy with fusion. The patient underwent the procedure on 06/06/2020 and was monitored postoperatively by the Neurosurgical team. The patient did develop confusion postoperatively, likely multifactorial including polypharmacy and anesthesia effect. The patient was given general supportive management and decreased on fentanyl exposure with overall improvement in mentation. The patient received IV fluids initially which were eventually discontinued due to hyponatremia and pseudohyponatremia. Due to the patient's recent surgical intervention and the need for ongoing therapy, the patient was deemed an appropriate candidate for inpatient rehabilitation. The patient was transferred to [facility] on 06/10/2020. DISCHARGE MEDICATIONS: 1. Atarax 10 mg p.o. q.a.m.. 2. Cardura 1 mg p.o. at bedtime. 3. Carvedilol 12.5 mg p.o. b.i.d. 4. Dulcolax 5 mg p.o. q.a.m. 5. Flexeril 10 mg p.o. b.i.d. 6. Lasix 20 mg p.o. q.a.m. 7. Gabapentin 300 mg p.o. t.i.d. 8. Glipizide 5 mg p.o. b.i.d. 9. Ramelteon 8 mg p.o. b.i.d. 10. Vitamin B12 5000 mcg p.o. q.a.m. 11. Vitamin D3 1000 units p.o. daily. 12. DuoNeb 3 mL nebulized q.4 hours p.r.n. 13. Gaffney 5/325 mg 1 tablet p.o. q.4 hours p.r.n. 14. Ultram 50 mg p.o. q.6 hours p.r.n. pain. FOLLOWUP: The patient may follow up with Dr. Lepe with Neurosurgical Service. CONDITION ON DISCHARGE: Stable. ACTIVITY: Ad suhas. DIET: Heart healthy. CODE STATUS: Full. DISPOSITION: [facility], 06/10/2020. Job ID: [id number]
--- NOTE | 2020-06-12 04:14 | PQF ---
Dear : Mina Torrez Date 06/12/2020 Please exercise your independent, professional judgment in responding to the clarification form. Clinical indicators are provided on the bottom of this form for your review Can you please further clarify the specificity of encephalopathy? Please check appropriate box(es): [ x ] Acute Metabolic Encephalopathy [ ] Acute Toxic Encephalopathy [ ] Drug induced Encephalopathy [ ] Other diagnosis please specify [ ] Unable to determine In addition, please specify: Present on Admission (POA): [ x ] Yes [ ] No [ ] Unable to determine Physician Signature: Date/Time: For continuity of documentation, please document condition throughout progress notes and discharge summary. Thank You. To be completed by CDI/Coding staff for physician review: Present Clinical Indicators - Signs / Symptoms / Labs Results and Location in Medical Record [ x ] Going to take time to clear her encephalopathy PN 06/08 pg.1 [ x ] Some somnolence and confusion Hospitalist PN 06/08 pg.1 [ x ] Her recovery over the past weekend was complicated by some confusion with right sided hemiparesis PN 06/09 pg.1 [ x ] The patient did develop confusion postoperatively DS pg.1 [ x ] Likely multifactorial including polypharmacy abd anesthesia effect DS pg.1 [ x ] Brain CT: No acute intracranial process Brain CT 06/07 [ x ] She is only oriented to self PN 06/07 Present Risk Factors Results and Location in Medical Record [ x ] DM2 Hospitalist PN pg.4 [ x ] HTN Hospitalist PN pg.4 [ x ] s/p laminectomy with spinal fusion Hospitalist PN pg.4 [ x ] 80 years old H and P pg.1 [ x ] Hyponatremia Query response Present Treatments Results and Location in Medical Record [ x ] IV fluids MAR [ x ] Brain CT 06/[address] 06/07 [ x ] Neurology Consult Dr. Angeles 06/09 [ x ] Sodium Chloride 0.9% 1000ml IV MAR 05/06 CDS/Books Salesperson Signature: Jordan Acevedo Phone #: ext [phone] Date 06/12/20 This is a permanent part of the Medical Record [facility]
--- NOTE | 2020-06-12 06:14 | DIS ---
DATE OF ADMISSION: 06/06/2020 DATE OF DISCHARGE: 06/10/2020 HOSPITAL COURSE: Ms. Mcdonald is an 80-year-old female who underwent a cervicothoracic decompression and fusion. Following the surgery, she was transitioned to the med/surg floor. Her recovery over the past few days has been little complicated due to some confusion and right hemiparesis. The medical team was consulted for medical management. The pain has been well controlled with p.o. medications. She has been tolerating a healthy heart diet. She is currently waiting for inpatient rehab to be accepted by insurance. She has been ambulating with assistance in the hallways with physical therapy. On examination, Ms. Mcdonald has good strength. She was grabbing the bed rail with the right hand and pulling herself up. Her strength is much of the other better than the last few days. She has at least 4/5 strength in the right lower extremity. Sensation of both lower extremities. Her incision is clean, dry, and intact. There was some mild leukocytosis likely from the steroids administered. She has some hyponatremia, which can add to her confusion. The urinalysis was done indicating some bacteria and urine culture has been reflex, which is pending. We will plan to dismiss Ms. Mcdonald to inpatient rehab when she is accepted by insurance. I have discussed home care precautions with her. She can resume Rivaroxaban 2 weeks after her surgery. CONDITION ON DISCHARGE: The patient had no emergencies. Condition was stable for transfer to inpatient rehab. MEDICATIONS: Home going medications were reviewed. FOLLOWUP: Followup arrangements made by our employment coordinator in the clinic and call to the patient. ACTIVITIES: Restrictions were reviewed in person. Wound care showers are acceptable. The patient should pat the incision dry, but not submerge under the surface of the body of water for one month. Job ID: [id number] MTDD
== END 2020-06-10 15:07 | DRG 459 ==
LOC: SURG A 05:32 → SURG B 20:06
PROVIDERS: ADMIT Neurological Surgery; ATTEND Neurological Surgery
PROC: 0RG7071 Fusion of 2 to 7 Thoracic Vertebral Joints with Autologous Tissue Substitute, Posterior Approach, Posterior Column, Open Approach (ICD-10-PCS; principal; 2020-06-06)
PROC: 0RG2071 Fusion of 2 or more Cervical Vertebral Joints with Autologous Tissue Substitute, Posterior Approach, Posterior Column, Open Approach (ICD-10-PCS; 2020-06-06)
PROC: 0RG4071 Fusion of Cervicothoracic Vertebral Joint with Autologous Tissue Substitute, Posterior Approach, Posterior Column, Open Approach (ICD-10-PCS; 2020-06-06)
PROC: 01N10ZZ Release Cervical Nerve, Open Approach (ICD-10-PCS; 2020-06-06)
PROC: 01N80ZZ Release Thoracic Nerve, Open Approach (ICD-10-PCS; 2020-06-06)
PROC: 0T9B70Z Drainage of Bladder with Drainage Device, Via Natural or Artificial Opening (ICD-10-PCS; 2020-06-07)
DX: M48.03 Spinal stenosis, cervicothoracic region (principal); G93.41 Metabolic encephalopathy; M50.021 Cervical disc disorder at C4-C5 level with myelopathy; E87.1 Hypo-osmolality and hyponatremia; G81.91 Hemiplegia, unspecified affecting right dominant side; M48.02 Spinal stenosis, cervical region; M43.12 Spondylolisthesis, cervical region; M48.04 Spinal stenosis, thoracic region; M19.90 Unspecified osteoarthritis, unspecified site; G89.29 Other chronic pain; G47.33 Obstructive sleep apnea (adult) (pediatric); I10 Essential (primary) hypertension; E11.9 Type 2 diabetes mellitus without complications; G47.00 Insomnia, unspecified; F41.9 Anxiety disorder, unspecified; Z86.711 Personal history of pulmonary embolism; Z79.01 Long term (current) use of anticoagulants; Z79.899 Other long term (current) drug therapy; Z88.0 Allergy status to penicillin; Z99.89 Dependence on other enabling machines and devices; Z90.710 Acquired absence of both cervix and uterus; Z98.1 Arthrodesis status; D72.829 Elevated white blood cell count, unspecified
CPT/HCPCS: 36415; 36416; 36600; 70450; 71045; 76000; 80048; 81001; 82805; 85025; 85610; 85730; 87086; 93005; 93010; 93970; 94640; C1768; J0171; J1100; J1170; J1956; J2370; J2405; J2704; J3010; J3370; J3490; J7620; J8540; S0020

== ENCOUNTER 2020-06-20 15:41 | Inpatient (IN) | payer MEDICARE, BC ==
--- NOTE | 2020-06-20 16:11 | CT ---
CT BRAIN 06/20/20 PROVIDED CLINICAL HISTORY: Slurred speech. FINDINGS: Comparison 06/07/20. The ventricular system appears normal in size and morphology. There is no evidence for intracranial h emorrhage or mass effect. Chronic microvascular ischemic changes appear similar to prior. The extracr anial soft tissues and osseous structures demonstrate no acute abnormality. IMPRESSION: No evidence for intracranial hemorrhage or mass effect. Findings communicated to Dr. Hernandez via teleph one 4:07 p.m., 06/20/20. Code CR POS: ANGELA
[2020-06-20 16:17] LABS: #Eosinphils 0.3 thou/uL (0.0-0.7); #Lymphocytes 3.1 thou/uL (1.20-3.40); #Monocytes 1.4 thou/uL (0.11-0.59); #Neutrophils 10.6 thou/uL (1.40-6.50); %Basophils 0.2 % (0.0-1.0); %Lymphocytes 20.1 % (21.0-51.0); %Neutrophils 68.8 % (42.0-75.0); Hemoglobin 11.2 g/dL (12.0-16.0); Mean Corpuscular HGB CONC 33.4 g/dL (32.0-36.0); Mean Corpuscular Hemoglobin 30.4 pg (27.0-31.0); Mean Corpuscular Volume 91.1 fL (78.0-98.0); Mean Platelet Volume 7.6 fL (7.4-10.4); Platelet Count 306 thou/uL (130-400); RBC Distribution Width 13.1 % (11.5-14.5); Red Blood Cell (RBC) Count 3.69 mill/uL (4.20-5.40); White Blood Cell (WBC) Count 15.4 thou/uL (4.8-10.8)
[2020-06-20 16:24] LABS: PTT 28.8 sec (22.9-36.1); Prothrombin Time 13.2 sec (12.0-14.7)
[2020-06-20] MEDS ORDERED: Acetaminophen 650 MG Suppository ONE (16:31)
[2020-06-20 16:37] LABS: Acetaminophen Less than 6.0 mcg/mL (10.0-30.0); Alcohol Less than 10 mg/dL (Less than 10); CK (CPK) 52 U/L (29-168); Lipase 31 U/L (8-78); Salicylate Less than 8.0 mg/dL (15.0-30.0)
--- NOTE | 2020-06-20 16:37 | RAD ---
PORTABLE CHEST: 06/20/20 PROVIDED CLINICAL HISTORY: Altered mental status. COMPARISON: 06/16/20. The cardiac silhouette appears enlarged, which may be at least partially on the basis of portable venkat hnique and patient rotation. No definite focal consolidation, pleural fluid or pneumothorax apparent. IMPRESSION: No evidence for an acute cardiopulmonary process. POS: ANGELA
[2020-06-20 16:38] LABS: ALT (SGPT) 27 U/L (8-55); AST (SGOT) 38 U/L (5-34); Alkaline Phosphatase 72 U/L (40-110); Anion Gap 19 mmol/L (10-20); BUN (Urea Nitrogen) 21 mg/dL (9.8-20.1); Bilirubin, Total 0.4 mg/dL (0.2-1.2); Calc. Creatinine Clearance 0 mL/min (70-130); Calcium 9.4 mg/dL (7.8-10.44); Carbon Dioxide 22 mmol/L (23-31); Chloride 100 mmol/L (98-107); Estimated GFR-MDRD 52; Globulin 3.2 g/dL (2.4-3.5); Glucose 97 mg/dL (83-110); Potassium 4.7 mmol/L (3.5-5.1); Protein, Total 7.2 g/dL (6.0-8.3); Sodium 136 mmol/L (136-145)
[2020-06-20 16:41] LABS: Actual Bicarbonate (HCO3a) 19.2 mEq/L (22-28); Analyzer IN Cardio ER; Base Excess (BEa) -1.1 mEq/L (-2.0 to +3.0); Calcium, Ionized (arterial) 1.19 mmol/L (1.12-1.30); Carboxyhemoglobin (COHb) 0.6 gm% (0.0-3.0); O2 Tension (PaO2), arterial 71.7 mmHg (> 60.0); Potassium - ABG Lab 4.05 mmol/L (3.70-5.30)
[2020-06-20 16:44] LABS: pH, Arterial 7.56 (7.35-7.45)
[2020-06-20 16:45] LABS: ALV-art Gradient 50.405 mmHg (0-20); CO2 Tension 22.1 mmHg (35.0-45.0); Puncture Site RBA
[2020-06-20 17:00] LABS: Bilirubin Negative (Negative); Blood, Urine Negative (Negative); Clarity Clear (Clear); Glucose, Urine (Dipstick) Normal (Negative); Ketone, Urine Negative (Negative); Leukocyte Negative Leu/uL (Negative); Nitrite Negative (Negative); Protein, Urine (Dipstick) Negative (Neg-Trace); Specific Gravity, Urine 1.008 (1.002-1.036); Urobilinogen Normal mg/dL (Less than 2)
[2020-06-20 17:08] LABS: Amphetamine Not Detected (NotDetected); Barbiturates Screen Not Detected (NotDetected); Benzodiazepine Screen Not Detected (NotDetected); Cocaine Metabolite Screen Not Detected (NotDetected); Medtox Control Line Valid? VALID (VALID); Medtox Reader # READER 1; Methadone Not Detected (NotDetected); Methamphetamine Not Detected (NotDetected); Opiate Screen Detected (NotDetected); Oxycodone Screen Not Detected (NotDetected); Phencyclidine (PCP) Not Detected (NotDetected); THC/Cannabinoid Screen Not Detected (NotDetected); Tricyclic Screen Not Detected (NotDetected)
[2020-06-20] MEDS ORDERED: Haloperidol Lactate 5 MG/ML VIAL SLOW IVP PRN (17:09)
[2020-06-20] MEDS ORDERED: Senokot S 8.6-50 MG TAB PO PRN (17:09)
[2020-06-20] MEDS ORDERED: Guaifenesin DM 100-10/5 ML UDCUP PO PRN (17:09)
[2020-06-20] MEDS ORDERED: Bisacodyl 10 MG SUPP PR PRN (17:09)
[2020-06-20] MEDS ORDERED: Ondansetron PF 4 MG/2 ML Vial IVP PRN (17:09)
--- NOTE | 2020-06-20 18:11 | HP ---
REASON FOR ADMISSION: Acute metabolic encephalopathy, moderate to severe dehydration. HISTORY OF PRESENTING ILLNESS: Please note, majority of this history was obtained by talking to Dr. Hernandez, ER physician, and prior medical records as the patient is not oriented. She is currently yelling and screaming. She does not appear to be in any distress as such. The patient has had recent history of decompressive laminectomy with medial facetectomy and foraminotomy at C5, C6, C7 and T1, T2, T3 done on 06/06/2020. She was subsequently sent to inpatient rehab for further recuperation. PAST MEDICAL AND SURGICAL HISTORY: Diabetes mellitus type 2, hypertension, obstructive sleep apnea, obesity, insomnia, anxiety disorder, recent C5 through T3 surgery, laminectomy , cataract removal, hysterectomy, and hand surgery. PERSONAL HISTORY: Per prior records, does not abuse alcohol or drugs. She is currently residing at inpatient rehab here in [place]. FAMILY HISTORY: Cannot be obtained as the patient is not oriented at present. CURRENT MEDICATIONS: The patient was discharged on; 1. Cardura 1 mg p.o. at bedtime. 2. Carvedilol 12.5 mg twice daily. 3. Flexeril 10 mg twice daily. 4. Lasix 20 mg p.o. q.a.m. 5. Gabapentin 300 mg p.o. 3 times daily. 6. Glipizide 5 mg twice daily. 7. Ramelteon 8 mg p.o. twice daily. 8. Vitamin B12, 5000 mcg p.o. q.a.m. 9. Vitamin D3, 1000 units p.o. q.a.m. 10. DuoNebs q.4 hourly. 11. [place] p.r.n. for pain. 12. Ultram p.r.n. for pain. ALLERGIES: ALLERGIC TO CODEINE, AMLODIPINE, METOPROLOL, AND PENICILLIN. CODE STATUS: Presumed to be full code. We will reascertain when the patient is more alert and oriented. REVIEW OF SYSTEMS: Cannot be obtained as the patient is not oriented. PHYSICAL EXAMINATION: GENERAL: The patient is an 80-year-old female who is currently not in any acute distress and is currently not oriented. VITAL SIGNS: Blood pressure 160/70, pulse 80 per minute, respiratory rate 20 per minute, temperature 100 degrees Fahrenheit, and saturating 100% on room air. NECK: Supple. No elevated JVD. HEENT: Eyes; extraocular muscles intact. Pupils reacting to light. Oral cavity, mucous membranes are dry. No congestion seen. CARDIOVASCULAR SYSTEM: S1 and S2 heard, regular rhythm. RESPIRATORY SYSTEM: Air entry 1+ bilateral. No rales or rhonchi. ABDOMEN: Soft. Bowel sounds heard. No tenderness, rigidity, or guarding. EXTREMITIES: No peripheral edema or calf tenderness. VASCULAR SYSTEM: Peripheral pulses 1+ bilateral. No ischemic ulcerations or gangrene. CENTRAL NERVOUS SYSTEM: No gross focal deficits noted. Peripheral pulses are 1+ bilateral. No ischemic ulcerations or gangrene. CENTRAL NERVOUS SYSTEM: No gross focal deficits noted. Please note, a thorough neurologic exam is not possible as the patient is refusing to be examined in addition to being screaming and yelling at present. She is not oriented. PSYCHIATRIC SYSTEM: Cannot be accurately assessed in view of her current encephalopathy. LABORATORY DATA: White count of 15, H and H 11 and 33, platelet count 306, MCV 91 with 68% neutrophils. PT/INR and PTT within normal limits. D-dimer is 4.38. Blood gas done, shows pH of 7.56, pCO2 22, PO2 71, serum bicarb 22, BUN 21, creatinine 1.0, AST 38, ALT 27, alkaline phosphatase 72, ammonia levels of 15. BNP 47, albumin 4.0. UA is negative for any infection. Urine drug screen is positive for opiates likely iatrogenic. CT brain, no acute intracranial abnormality. Chest x-ray, no acute cardiopulmonary abnormality. CLINICAL IMPRESSION AND PLAN: The patient will be admitted to medical floor for acute encephalopathy, likely multifactorial including medication and possible inadequate oral intake, moderate to severe dehydration. She also had a fever of 100 degrees. We will obtain blood and urine cultures. Ultrasound venous Doppler of lower extremities as well. It is unclear if the patient is participating with physical therapy at rehab. She will be on gentle hydration with normal saline, and we will continue her carvedilol lower dose, vitamin B12, doxazosin, DuoNebs and Senokot-S for now. We will use Haldol 5 mg IV q.8 hourly p.r.n. for severe agitation and one-to-one sitter will be obtained. PT and OT evaluations will be requested. If needed, we will consult Dr. Lepe, her neurosurgeon, tomorrow. We will continue to closely monitor her medical floor for now. Job ID: [id number]
[2020-06-20 18:57] LABS: SARS-CoV-2 NAA Rapid Test Not Detected (NotDetected)
[2020-06-20] MEDS ORDERED: Doxazosin Mesylate 1 MG TAB PO SCH (21:00)
[2020-06-20 21:57] VITALS: BMI 25.7
[2020-06-20] MEDS: Carvedilol 6.25 MG TAB PO SCH (22:52)
[2020-06-20] MEDS: Famotidine 20 MG TAB PO SCH (22:52)
[2020-06-20] MEDS: Sodium Chloride 0.9% 1,000 ML IV SCH (22:53)
[2020-06-21] MEDS: Acetaminophen 325 MG TAB PO PRN (01:45)
[2020-06-21] MEDS ORDERED: traZODone HCl 50 MG TAB PO SCH (02:00)
[2020-06-21] MEDS: Sodium Chloride 0.65% Nasal 44 ML BOT EA NARE PRN (02:11)
[2020-06-21] MEDS: Sodium Chloride 0.9% 1,000 ML IV SCH ×2 (05:29→13:22)
[2020-06-21 06:23] LABS: #Eosinphils 0.4 thou/uL (0.0-0.7); #Lymphocytes 1.7 thou/uL (1.20-3.40); #Neutrophils 7.6 thou/uL (1.40-6.50); %Basophils 0.4 % (0.0-1.0); %Eosinophils 3.4 % (0.0-10.0); %Monocytes 8.9 % (0.0-10.0); %Neutrophils 71.3 % (42.0-75.0); Hemoglobin 10.3 g/dL (12.0-16.0); Mean Corpuscular HGB CONC 33.5 g/dL (32.0-36.0); Mean Corpuscular Hemoglobin 30.5 pg (27.0-31.0); Mean Corpuscular Volume 90.9 fL (78.0-98.0); Mean Platelet Volume 7.3 fL (7.4-10.4); Platelet Count 304 thou/uL (130-400); RBC Distribution Width 12.8 % (11.5-14.5); Red Blood Cell (RBC) Count 3.36 mill/uL (4.20-5.40); White Blood Cell (WBC) Count 10.6 thou/uL (4.8-10.8)
[2020-06-21 06:48] LABS: Anion Gap 14 mmol/L (10-20); BUN (Urea Nitrogen) 13 mg/dL (9.8-20.1); Calc. Creatinine Clearance 57 mL/min (70-130); Calcium 8.6 mg/dL (7.8-10.44); Carbon Dioxide 22 mmol/L (23-31); Chloride 107 mmol/L (98-107); Estimated GFR-MDRD 63; Glucose 135 mg/dL (83-110); Potassium 4.1 mmol/L (3.5-5.1); Sodium 139 mmol/L (136-145)
--- NOTE | 2020-06-21 08:12 | ULT ---
Bilateral lower extremity venous Doppler ultrasound: 06/21/2020 COMPARISON: None HISTORY: Elevated d-dimer, evaluate for lower extremity deep venous thrombosis TECHNIQUE: Multiplanar grayscale sonographic imaging of the venous structures of bilateral lower extr emities obtained with color flow and spectral analysis FINDINGS: Bilateral common femoral veins, greater saphenous veins, profunda femoral veins, femoral ve ins, popliteal veins, and posterior tibial veins are patent. There is normal blood flow, augmentation, and compression within the deep venous system bilaterally. No evidence for DVT on eithe r side IMPRESSION: No evidence for deep venous thrombosis of either lower extremity.
[2020-06-21] MEDS: Carvedilol 6.25 MG TAB PO SCH ×3 (09:00→20:50)
[2020-06-21] MEDS: Cyanocobalamin (Vitamin B-12) 1,000 MCG TAB PO SCH (09:01)
[2020-06-21] MEDS: Enoxaparin Sodium 40 MG/0.4 ML SYRINGE SC SCH (09:01)
[2020-06-21] MEDS: Bisacodyl 5 MG TAB PO SCH (09:01)
[2020-06-21] MEDS: Famotidine 20 MG TAB PO SCH ×2 (09:01→20:50)
[2020-06-21] MEDS ORDERED: hydrALAZINE 20 MG/ML VIAL SLOW IVP PRN (09:49)
--- NOTE | 2020-06-21 13:12 | PDOC.HOSPP ---
- Subjective Encounter Date: 06/21/20 Encounter Time: 11:40 Subjective: Patient is getting breathing treatment. She is oriented. She feels that she needs bigger bed. Denies any pain currently. - Objective Vital Signs & Weight: Vital Signs (12 hours) Temp Pulse Resp BP BP Pulse Ox 06/21/20 11:39 97.8 F 82 20 141/58 H 95 06/21/20 11:09 77 20 96 06/21/20 09:00 165/77 H 06/21/20 08:46 67 18 94 L 06/21/20 08:00 94 L 06/21/20 07:41 98.2 F 77 20 120/73 96 06/21/20 05:29 98.2 F 73 16 155/69 H 99 06/21/20 05:00 98.2 F 73 16 155/69 H 99 06/21/20 02:36 67 20 95 Weight Weight 154 lb 9.6 oz Result Diagrams: 06/21/20 06:00 06/21/20 06:00 Additional Labs: Accuchecks 06/21/20 05:28 POC Glucose 130 H Hospitalist ROS - Medication Medications: Active Medications Generic Name Dose Route Start Last Admin Trade Name Freq PRN Reason Stop Dose Admin Acetaminophen 650 mg 06/20/20 17:09 06/21/20 01:45 Acetaminophen 325 Mg Tab PO 650 mg Q4H PRN Administration Headache/Fever/Mild Pain (1-3) Albuterol/Ipratropium 3 ml 06/20/20 18:30 06/21/20 11:09 Ipratropium/Albuterol Sulfate 3 Ml Neb NEB 3 ml [id number] [place] Administration Bisacodyl 5 mg 06/21/20 09:00 06/21/20 09:01 Bisacodyl 5 Mg Tab PO 5 mg QAM [place] Administration Carvedilol 12.5 mg 06/20/20 21:00 06/21/20 09:00 Carvedilol 6.25 Mg Tab PO 12.5 mg BID [place] Administration Cyanocobalamin 5,000 mcg 06/21/20 09:00 06/21/20 09:01 Cyanocobalamin (Vitamin B-12) 1,000 Mcg Tab PO 5,000 mcg QAM [place] Administration Enoxaparin Sodium 40 mg 06/21/20 09:00 06/21/20 09:01 Enoxaparin Sodium 40 Mg/0.4 Ml Syringe SC 40 mg 0900 [place] Administration Famotidine 20 mg 06/20/20 21:00 06/21/20 09:01 Famotidine 20 Mg Tab PO 20 mg BID [place] Administration Haloperidol Lactate 5 mg 06/20/20 17:09 06/20/20 22:53 Haloperidol Lactate 5 Mg/Ml Vial SLOW IVP 5 mg Q8H PRN Administration Agitation Sodium Chloride 1,000 mls @ 100 mls/hr 06/20/20 17:15 06/21/20 05:29 Normal Saline 0.9% IV 1,000 mls .Q10H [place] Administration Sodium Chloride 10 ml 06/21/20 09:00 06/21/20 09:01 Flush - Normal Saline 10 Ml Syringe IVF 10 ml Q12HR [place] Administration Sodium Chloride 0 ml 06/21/20 01:51 06/21/20 02:11 Sodium Chloride 0.65% Nasal 44 Ml Bot EA NARE 1 spr TID PRN Administration Nasal Congestion - Exam General Appearance: NAD, awake alert Eye: PERRL ENT: normocephalic atraumatic Neck: supple Heart: RRR, normal peripheral pulses Respiratory: CTAB, normal chest expansion Gastrointestinal: soft, normal bowel sounds Neurological: no focal deficits Psychiatric: A&O x 3 Hosp A/P - Plan Metabolic encephalopathy -no sign of infection probably acute stress with dehydration in an elderly Metabolic acidosis -Urine analysis quite benign. CT head no acute intracranial abnormality. Elevated white count of 15,000 with initial admission, resolved with hydration. Ultrasound of the lower extremities negative for DVT. Covid negative -physical therapy consult placed.
[2020-06-21] MEDS: Lorazepam 2 MG/ML VIAL SLOW IVP PRN (20:51)
[2020-06-22] MEDS: Sodium Chloride 0.9% 1,000 ML IV SCH ×3 (02:16→16:06)
[2020-06-22] MEDS: Cyanocobalamin (Vitamin B-12) 1,000 MCG TAB PO SCH (08:26)
[2020-06-22] MEDS: Enoxaparin Sodium 40 MG/0.4 ML SYRINGE SC SCH (08:26)
[2020-06-22] MEDS: Bisacodyl 5 MG TAB PO SCH (08:27)
[2020-06-22] MEDS: Famotidine 20 MG TAB PO SCH ×2 (08:27→20:02)
[2020-06-22] MEDS: Carvedilol 6.25 MG TAB PO SCH ×3 (08:27→15:06)
[2020-06-22] MEDS: Lorazepam 2 MG/ML VIAL SLOW IVP PRN (12:50)
--- NOTE | 2020-06-22 13:18 | PDOC.HOSPP ---
- Subjective Encounter Date: 06/22/20 Encounter Time: 10:40 Subjective: Patient is resting she is sleeping. On awakening she says she has no appetite. Otherwise looks okay. Not in any acute distress-- nontoxic looking. Not confused with a small - Objective Vital Signs & Weight: Vital Signs (12 hours) Temp Pulse Resp BP BP BP Pulse Ox 06/22/20 11:26 68 20 94 L 06/22/20 08:27 163/91 H 06/22/20 07:51 97.6 F 80 20 163/91 H 94 L 06/22/20 07:31 84 18 94 L 06/22/20 04:56 165/83 H 06/22/20 04:52 99.0 F 84 20 92 L Weight Weight 154 lb 9.6 oz Result Diagrams: 06/21/20 06:00 06/21/20 06:00 Hospitalist ROS - Medication Medications: Active Medications Generic Name Dose Route Start Last Admin Trade Name Freq PRN Reason Stop Dose Admin Acetaminophen 650 mg 06/20/20 17:09 06/21/20 01:45 Acetaminophen 325 Mg Tab PO 650 mg Q4H PRN Administration Headache/Fever/Mild Pain (1-3) Albuterol/Ipratropium 3 ml 06/20/20 18:30 06/22/20 11:26 Ipratropium/Albuterol Sulfate 3 Ml Neb NEB 3 ml [id number] [place] Administration Bisacodyl 5 mg 06/21/20 09:00 06/22/20 08:27 Bisacodyl 5 Mg Tab PO 5 mg QAM [place] Administration Carvedilol 12.5 mg 06/21/20 17:00 06/22/20 08:27 Carvedilol 6.25 Mg Tab PO Not Given BID-WM [place] Cyanocobalamin 5,000 mcg 06/21/20 09:00 06/22/20 08:26 Cyanocobalamin (Vitamin B-12) 1,000 Mcg Tab PO 5,000 mcg QAM [place] Administration Enoxaparin Sodium 40 mg 06/21/20 09:00 06/22/20 08:26 Enoxaparin Sodium 40 Mg/0.4 Ml Syringe SC 40 mg 0900 [place] Administration Famotidine 20 mg 06/20/20 21:00 06/22/20 08:27 Famotidine 20 Mg Tab PO 20 mg BID [place] Administration Sodium Chloride 1,000 mls @ 100 mls/hr 06/20/20 17:15 06/22/20 08:31 Normal Saline 0.9% IV 1,000 mls .Q10H [place] Administration Lorazepam 1 mg 06/21/20 19:16 06/22/20 12:50 Lorazepam 2 Mg/Ml Vial SLOW IVP 1 mg Q6H PRN Administration Agitation Sodium Chloride 10 ml 06/21/20 09:00 06/22/20 08:31 Flush - Normal Saline 10 Ml Syringe IVF Not Given Q12HR [place] Sodium Chloride 0 ml 06/21/20 01:51 06/21/20 02:11 Sodium Chloride 0.65% Nasal 44 Ml Bot EA NARE 1 spr TID PRN Administration Nasal Congestion - Exam General Appearance: awake alert General - other findings: Not confused at this month Eye: PERRL ENT: normocephalic atraumatic Neck: supple Heart: RRR Respiratory: CTAB, normal chest expansion Gastrointestinal: soft, normal bowel sounds Neurological: no new deficit Musculoskeletal: generalized weakness Psychiatric: oriented to person Hosp A/P - Plan Metabolic encephalopathy -no sign of infection -Labile mentation. probably acute stress with dehydration in an elderly Metabolic acidosis -Urine analysis quite benign. CT head no acute intracranial abnormality. Elevated white count of 15,000 with initial admission, resolved with hydration. Ultrasound of the lower extremities negative for DVT. Covid negative -physical therapy consult placed.
[2020-06-22] MEDS: hydrALAZINE 25 MG TAB PO SCH ×2 (15:07→20:03)
[2020-06-22] MEDS: Acetaminophen 325 MG TAB PO PRN (20:03)
[2020-06-23] MEDS: Sodium Chloride 0.9% 1,000 ML IV SCH ×2 (05:15→16:31)
[2020-06-23] MEDS: Bisacodyl 5 MG TAB PO SCH (08:53)
[2020-06-23] MEDS: Enoxaparin Sodium 40 MG/0.4 ML SYRINGE SC SCH (08:53)
[2020-06-23] MEDS: hydrALAZINE 25 MG TAB PO SCH ×3 (08:54→20:01)
[2020-06-23] MEDS: Carvedilol 6.25 MG TAB PO SCH ×2 (08:54→18:22)
[2020-06-23] MEDS: Cyanocobalamin (Vitamin B-12) 1,000 MCG TAB PO SCH (08:54)
[2020-06-23] MEDS: Acetaminophen 325 MG TAB PO PRN ×3 (08:55→23:05)
[2020-06-23] MEDS: Famotidine 20 MG TAB PO SCH ×2 (08:56→20:01)
[2020-06-23] MEDS: Sodium Chloride 0.65% Nasal 44 ML BOT EA NARE PRN (11:55)
[2020-06-23] MEDS ORDERED: Metamucil PACK PO SCH (12:45)
--- NOTE | 2020-06-23 13:14 | PDOC.HOSPP ---
- Subjective Encounter Date: 06/23/20 Encounter Time: 10:40 Subjective: Patient seen this morning. She is quite sleepy not arousable. No acute events noted overnight. Urine culture no growth for 48 hours. Her blood pressure is quite high this morning. She is on hydralazine as needed as well as Coreg scheduled. - Objective Vital Signs & Weight: Vital Signs (12 hours) Temp Pulse Resp BP BP Pulse Ox 06/23/20 09:58 83 20 95 06/23/20 08:54 83 161/96 H 06/23/20 07:27 98.8 F 83 18 185/80 H 94 L 06/23/20 07:02 80 22 H 96 06/23/20 04:52 98.1 F 80 20 158/60 H 96 06/23/20 02:32 61 20 95 Weight Weight 154 lb 9.6 oz I&O: 06/22/20 06/23/20 06/24/20 06:59 06:59 06:59 Intake Total 1350 Balance 1350 Result Diagrams: 06/21/20 06:00 06/21/20 06:00 Additional Labs: Accuchecks 06/20/20 15:48 POC Glucose 92 Hospitalist ROS - Medication Medications: Active Medications Generic Name Dose Route Start Last Admin Trade Name Freq PRN Reason Stop Dose Admin Acetaminophen 650 mg 06/20/20 17:09 06/23/20 08:55 Acetaminophen 325 Mg Tab PO 650 mg Q4H PRN Administration Headache/Fever/Mild Pain (1-3) Albuterol/Ipratropium 3 ml 06/20/20 18:30 06/23/20 09:58 Ipratropium/Albuterol Sulfate 3 Ml Neb NEB 3 ml [id number] [place] Administration Bisacodyl 5 mg 06/21/20 09:00 06/23/20 08:53 Bisacodyl 5 Mg Tab PO 5 mg QAM [place] Administration Carvedilol 12.5 mg 06/21/20 17:00 06/23/20 08:54 Carvedilol 6.25 Mg Tab PO 12.5 mg BID-WM [place] Administration Cyanocobalamin 5,000 mcg 06/21/20 09:00 06/23/20 08:54 Cyanocobalamin (Vitamin B-12) 1,000 Mcg Tab PO 5,000 mcg QAM [place] Administration Enoxaparin Sodium 40 mg 06/21/20 09:00 06/23/20 08:53 Enoxaparin Sodium 40 Mg/0.4 Ml Syringe SC 40 mg 0900 [place] Administration Famotidine 20 mg 06/20/20 21:00 06/23/20 08:56 Famotidine 20 Mg Tab PO 20 mg BID [place] Administration Hydralazine HCl 25 mg 06/22/20 15:00 06/23/20 08:54 Hydralazine 25 Mg Tab PO 25 mg TID [place] Administration Sodium Chloride 1,000 mls @ 100 mls/hr 06/20/20 17:15 06/23/20 05:15 Normal Saline 0.9% IV 1,000 mls .Q10H [place] Administration Lorazepam 1 mg 06/21/20 19:16 06/22/20 12:50 Lorazepam 2 Mg/Ml Vial SLOW IVP 1 mg Q6H PRN Administration Agitation Sodium Chloride 10 ml 06/21/20 09:00 06/23/20 08:56 Flush - Normal Saline 10 Ml Syringe IVF Not Given Q12HR [place] Sodium Chloride 0 ml 06/21/20 01:51 06/23/20 11:55 Sodium Chloride 0.65% Nasal 44 Ml Bot EA NARE 1 spr TID PRN Administration Nasal Congestion - Exam General Appearance: NAD, awake alert Eye: PERRL ENT: normocephalic atraumatic Neck: supple Heart: RRR Respiratory: CTAB, normal chest expansion Gastrointestinal: soft, normal bowel sounds Neurological: no focal deficits Psychiatric: normal affect, A&O x 3 Hosp A/P - Plan Metabolic encephalopathy -no sign of infection -Labile mentation. probably acute stress with dehydration in an elderly Metabolic acidosis -Urine analysis quite benign. CT head no acute intracranial abnormality. Elevated white count of 15,000 with initial admission, resolved with hydration. Ultrasound of the lower extremities negative for DVT. Covid negative -physical therapy consult placed. Urine culture no growth for 48 hours. Accelerated hypertension Her blood pressure is quite high this morning. She is on hydralazine as needed as well as Coreg scheduled. Currently no active medical management Patient need to be mobilized. Once that is achieved she can be transferred to the rehab facility.
[2020-06-23] MEDS: Lorazepam 2 MG/ML VIAL SLOW IVP PRN (20:33)
[2020-06-24] MEDS: Sodium Chloride 0.9% 1,000 ML IV SCH ×3 (00:48→17:16)
[2020-06-24] MEDS: Acetaminophen 325 MG TAB PO PRN ×4 (02:56→20:01)
[2020-06-24] MEDS ORDERED: Ibuprofen 200 MG TAB PO SCH (03:30)
[2020-06-24] MEDS: Cyanocobalamin (Vitamin B-12) 1,000 MCG TAB PO SCH (08:59)
[2020-06-24] MEDS: Famotidine 20 MG TAB PO SCH ×2 (08:59→20:01)
[2020-06-24] MEDS: Enoxaparin Sodium 40 MG/0.4 ML SYRINGE SC SCH (09:00)
[2020-06-24] MEDS: hydrALAZINE 25 MG TAB PO SCH ×3 (09:00→20:00)
[2020-06-24] MEDS: Bisacodyl 5 MG TAB PO SCH ×2 (09:00→09:02)
[2020-06-24] MEDS: Carvedilol 6.25 MG TAB PO SCH ×2 (09:00→17:14)
[2020-06-24] MEDS: Metamucil PACK PO SCH (09:01)
--- NOTE | 2020-06-24 13:25 | PDOC.HOSPP ---
- Subjective Encounter Date: 06/24/20 Encounter Time: 11:20 Subjective: Patient is quite cheerful this morning. She does have a hard of hearing. Seen the patient with the student. She is quite anxious to go home. She says that her family lives upstairs and she lives downstairs and she is able to move around with her wheelchair. - Objective Vital Signs & Weight: Vital Signs (12 hours) Temp Pulse Resp BP Pulse Ox 06/24/20 10:47 87 16 97 06/24/20 07:22 77 18 97 06/24/20 05:00 97.6 F 77 18 158/83 H 97 Weight Weight 154 lb 9.6 oz I&O: 06/23/20 06/24/20 06/25/20 06:59 06:59 06:59 Intake Total 1350 800 Balance 1350 800 Result Diagrams: 06/21/20 06:00 06/21/20 06:00 Additional Labs: Accuchecks 06/23/20 19:32 POC Glucose 133 H Hospitalist ROS - Medication Medications: Active Medications Generic Name Dose Route Start Last Admin Trade Name Freq PRN Reason Stop Dose Admin Acetaminophen 650 mg 06/20/20 17:09 06/24/20 10:22 Acetaminophen 325 Mg Tab PO 650 mg Q4H PRN Administration Headache/Fever/Mild Pain (1-3) Albuterol/Ipratropium 3 ml 06/20/20 18:30 06/24/20 10:47 Ipratropium/Albuterol Sulfate 3 Ml Neb NEB 3 ml [id number] [place] Administration Bisacodyl 5 mg 06/21/20 09:00 06/24/20 09:02 Bisacodyl 5 Mg Tab PO Not Given QAM [place] Carvedilol 12.5 mg 06/21/20 17:00 06/24/20 09:00 Carvedilol 6.25 Mg Tab PO 12.5 mg BID-WM [place] Administration Cyanocobalamin 5,000 mcg 06/21/20 09:00 06/24/20 08:59 Cyanocobalamin (Vitamin B-12) 1,000 Mcg Tab PO 5,000 mcg QAM [place] Administration Enoxaparin Sodium 40 mg 06/21/20 09:00 06/24/20 09:00 Enoxaparin Sodium 40 Mg/0.4 Ml Syringe SC Not Given 09 [place] Famotidine 20 mg 06/20/20 21:00 06/24/20 08:59 Famotidine 20 Mg Tab PO 20 mg BID [place] Administration Hydralazine HCl 10 mg 06/21/20 09:49 06/24/20 08:58 Hydralazine 20 Mg/Ml Vial SLOW IVP 10 mg Q4H PRN Administration Blood Pressure Hydralazine HCl 25 mg 06/22/20 15:00 06/24/20 09:00 Hydralazine 25 Mg Tab PO 25 mg TID [place] Administration Sodium Chloride 1,000 mls @ 100 mls/hr 06/20/20 17:15 06/24/20 12:40 Normal Saline 0.9% IV Not Given .Q10H [place] Psyllium Hydrophilic Mucilloid 1 pk 06/24/20 09:00 06/24/20 09:01 Metamucil Pack PO 1 pk DAILY [place] Administration Sodium Chloride 10 ml 06/21/20 09:00 06/24/20 09:01 Flush - Normal Saline 10 Ml Syringe IVF 10 ml Q12HR [place] Administration Sodium Chloride 0 ml 06/21/20 01:51 06/23/20 11:55 Sodium Chloride 0.65% Nasal 44 Ml Bot EA NARE 1 spr TID PRN Administration Nasal Congestion - Exam General Appearance: NAD, awake alert Eye: PERRL ENT: normocephalic atraumatic Neck: supple Heart: RRR Respiratory: CTAB, normal chest expansion Gastrointestinal: soft, normal bowel sounds Neurological: no focal deficits Psychiatric: A&O x 3 Hosp A/P - Plan Metabolic encephalopathy -no sign of infection -Labile mentation. probably acute stress with dehydration in an elderly Metabolic acidosis -Urine analysis quite benign. CT head no acute intracranial abnormality. Elevated white count of 15,000 with initial admission, resolved with hydration. Ultrasound of the lower extremities negative for DVT. Covid negative -physical therapy consult placed. Urine culture no growth for 48 hours. Accelerated hypertension Her blood pressure is quite high this morning. She is on hydralazine as needed as well as Coreg scheduled. Currently no active medical management Patient need to be mobilized. Once that is achieved she can be transferred to the rehab facility. 1st Patient prefers to go home. I am little concerned about her functional status. It appears he is cooperating with physical therapy he is deconditioned with a decreased strength functional mobility and gait. Will check with home health physical therapy can be arranged. Contacting the family Ramos Mendieta at [phone], and see whether he would be interested in for the patient to go to the rehab. I got only voice message.
[2020-06-24] MEDS ORDERED: Dextrose 50% Abboject 50 ML SYRINGE SLOW IVP PRN (20:13)
[2020-06-24] MEDS ORDERED: Dextrose 5% in Water 1,000 ML IV PRN (20:13)
[2020-06-24] MEDS: traMADol HCl 50 MG TAB PO PRN (20:47)
[2020-06-24] MEDS ORDERED: Melatonin 3 MG TAB PO PRN (21:34)
[2020-06-25] MEDS ORDERED: Ibuprofen 800 MG TAB PO SCH (01:30)
[2020-06-25] MEDS: traMADol HCl 50 MG TAB PO PRN ×3 (05:37→17:42)
[2020-06-25] MEDS: Famotidine 20 MG TAB PO SCH (08:28)
[2020-06-25] MEDS: Enoxaparin Sodium 40 MG/0.4 ML SYRINGE SC SCH (08:28)
[2020-06-25] MEDS: Cyanocobalamin (Vitamin B-12) 1,000 MCG TAB PO SCH (08:29)
[2020-06-25] MEDS: Carvedilol 6.25 MG TAB PO SCH ×2 (08:29→16:39)
[2020-06-25] MEDS: Bisacodyl 5 MG TAB PO SCH (08:30)
[2020-06-25] MEDS: hydrALAZINE 25 MG TAB PO SCH ×2 (08:30→14:21)
[2020-06-25] MEDS: Sodium Chloride 0.9% 1,000 ML IV SCH ×2 (08:32→16:44)
[2020-06-25] MEDS: Metamucil PACK PO SCH (09:06)
[2020-06-25] MEDS: Acetaminophen 325 MG TAB PO PRN ×2 (11:46→17:42)
--- NOTE | 2020-06-25 13:45 | PDOC.DS.DS ---
Provider - Provider Date of Admission: 06/20/20 17:03 Admitting Provider: Ahsan Hurtado MD Primary Care Physician: OUT OF TOWN Course - Hospital Course Hospital Course: Metabolic encephalopathy -no sign of infection probably acute stress with dehydration in an elderly--underlying dementia cannot be ruled out in this 80-year-old female. Metabolic acidosis --Improved with hydration -Urine analysis quite benign. CT head no acute intracranial abnormality. Elevated white count of 15,000 with initial admission, resolved with hydration. Ultrasound of the lower extremities negative for DVT. Covid negative Blood and urine culture no growth for 48 hours. Plan to be discharged to the rehab today. Resuscitation Status: 06/20/20 17:03 Resuscitation Status Routine Resuscitation Status: FULL: Full Resuscitation - Labs Lab Results: 06/21/20 06:00 06/21/20 06:00 Microbiology - Entire Visit 06/20/20 17:09 Urine voided Urine Culture - Final NO GROWTH AT 48 HOURS 06/20/20 15:54 Venous blood - Right Arm Blood Culture - Preliminary NO GROWTH AT 48 HOURS 06/20/20 17:32 Venous blood - Right Hand Blood Culture - Preliminary NO GROWTH AT 48 HOURS - Physical Exam Vitals: Vital Signs (12 hours) Temp Pulse Resp BP BP BP Pulse Ox 06/25/20 13:39 80 16 98 06/25/20 11:48 178/89 H 06/25/20 11:06 98.1 F 86 20 189/67 H 92 L 06/25/20 10:18 81 18 97 06/25/20 08:30 81 184/81 H 06/25/20 08:29 184/81 H 06/25/20 07:50 94 L 06/25/20 07:41 97.7 F 81 20 184/81 H 94 L 06/25/20 07:06 96 06/25/20 07:04 98 18 96 06/25/20 04:25 97.6 F 83 18 163/82 H 95 06/25/20 02:36 93 L 06/25/20 02:35 93 L Weight Weight 154 lb 9.6 oz Physical Exam: The patient was seen and examined on the day of discharge. Patient appears in a cheerful mood this morning. She is saying she can go home tomorrow. Try to call the family this morning not able to get hold of them. manager of quality talk to the family and they would like her to go to the rehab. Plan to be discharged to the rehab today. Plan - Discharge Medications Home Medications: Medication Instructions Recorded Confirmed Type Bisacodyl [Dulcolax] 5 mg PO QAM 06/05/20 06/21/20 History Carvedilol 12.5 mg PO BID 06/05/20 06/21/20 History Cholecalciferol (Vitamin D3) 1,000 unit PO QAM 06/05/20 06/21/20 History [Vitamin D3] Cyanocobalamin (Vitamin B-12) 5,000 mcg PO QAM 06/05/20 06/21/20 History [Vitamin B12] Doxazosin Mesylate [Cardura] 1 tab PO HS 06/05/20 06/21/20 History Furosemide 20 mg PO QAM 06/05/20 06/21/20 History Gabapentin 300 mg PO TID 06/05/20 06/21/20 History Lancets [Microlet] 1 each SUBDERMAL HS 06/05/20 06/21/20 History Ramelteon 8 mg PO BID 06/05/20 06/21/20 History hydrOXYzine [Atarax] 10 mg PO QAM 06/05/20 06/21/20 History Acetaminophen [Tylenol Regular 650 mg PO Q4HR #0 tab 06/10/20 06/21/20 Rx Strength] HYDROcodone Bit/APAP 5/325 [[place]] 1 tab PO Q4H PRN tab 06/10/20 06/21/20 Rx Ipratropium/Albuterol Sulfate 3 ml NEB [id number] neb 06/10/20 06/21/20 Rx [DuoNeb] traMADol HCl [Ultram] 50 mg PO Q6H PRN 7 Days #0 tab 06/10/20 06/21/20 Rx Allergies: amlodipine [From Norvasc] Allergy (Severe, Verified 06/07/20 02:44) codeine Allergy (Severe, Verified 06/07/20 02:44) metoprolol [From Toprol XL] Allergy (Severe, Verified 06/07/20 02:44) Penicillins Allergy (Severe, Verified 06/07/20 02:44) Statins Allergy (Severe, Uncoded 06/07/20 02:44) - Discharge Instructions Discharge Instructions:: PCP follow-up in 1 week. Activity:: Activity as Tolerated Nourishment:: Heart Healthy Diet - Follow up Plan Referrals: [facility] [Primary Care Provider] - Disposition: REHABILITATION INPATIENT Quality - Care Measures CORE MEASURES:: N/A
[2020-06-25 17:47] VITALS: BP 171/79; TEMP 97.2
== END 2020-06-25 18:34 | DRG 640 ==
LOC: ERS 15:41 → T4-A 17:03
PROVIDERS: ADMIT Internal Medicine; ATTEND Internal Medicine
DX: E86.0 Dehydration (principal); G93.41 Metabolic encephalopathy; Z20.828 Contact with and (suspected) exposure to other viral communicable diseases; E87.2 Acidosis; M19.90 Unspecified osteoarthritis, unspecified site; I10 Essential (primary) hypertension; E11.9 Type 2 diabetes mellitus without complications; G47.33 Obstructive sleep apnea (adult) (pediatric); E66.9 Obesity, unspecified; F41.9 Anxiety disorder, unspecified; G47.00 Insomnia, unspecified; F03.90 Unspecified dementia, unspecified severity, without behavioral disturbance, psychotic disturbance, mood disturbance, and anxiety; Z68.25 Body mass index [BMI] 25.0-25.9, adult; Z86.711 Personal history of pulmonary embolism; Z90.710 Acquired absence of both cervix and uterus; Z79.899 Other long term (current) drug therapy; Z88.6 Allergy status to analgesic agent; Z88.0 Allergy status to penicillin; Z88.8 Allergy status to other drugs, medicaments and biological substances; Z79.84 Long term (current) use of oral hypoglycemic drugs
CPT/HCPCS: 36415; 36416; 36600; 51701; 70450; 71045; 80048; 80053; 80306; 80307; 81003; 82140; 82550; 82805; 83690; 83880; 84484; 85025; 85379; 85610; 85730; 87040; 87086; 93005; 93970; J0360; J1630; J1650; J2060; J7620; U0002